=== PATIENT | male | born 1955 | race African-American/Black ===

== ENCOUNTER 2017-02-04 16:06 | Emergency (ER) | payer OTHER ==
[2017-02-04 16:13] VITALS: BP 116/69
--- NOTE | 2017-02-04 18:04 | UC ---
Respiratory Complaint HPI - HPI Summary HPI Summary: ONE WEEK OF COUGH, SINUS CONGESTION. NO FEVER. - History of Current Complaint Chief Complaint: UCRespiratory Stated Complaint: COUGH, AND SINUS CONGESTION Hx Obtained From: Patient Onset/Duration: Gradual Onset, Lasting Weeks, Still Present Timing: Constant Severity Initially: Mild Severity Currently: Moderate Character: Cough: Nonproductive Associated Signs And Symptoms: Positive: Negative, URI, Nasal Congestion, Hoarseness, Sinus Discomfort - Risk Factors Pulmonary Embolism Risk Factors: Negative Cardiac Risk Factors: Negative Pseudomonas Risk Factors: Negative Tuberculosis Risk Factors: Negative - Allergies/Home Medications Allergies/Adverse Reactions: Allergies Allergy/AdvReac Type Severity Reaction Status Date / Time Amoxicillin Allergy Vomiting Verified 02/04/17 16:12 PMH/Surg Hx/FS Hx/Imm Hx Previously Healthy: Yes - Surgical History Surgical History: Yes Surgery Procedure, Year, and Place: C5-C7 laminectomy 2010, back surgery L5 L5 February 2016 - Family History Known Family History: Negative: Cardiac Disease, Hypertension, Diabetes - Social History Occupation: Retired Lives: With Family Alcohol Use: None Substance Use Type: None Substance Use Comment - Amount & Last Used: oxycodone Smoking Status (MU): Current Every Day Smoker Type: Cigarettes Amount Used/How Often: 1/2 PPD Length of Time of Smoking/Using Tobacco: 30 years Have You Smoked in the Last Year: Yes Household Exposure Type: Cigarettes Cessation Counseling: Patient Advised to Stop - Immunization History Most Recent Influenza Vaccination: 2014 Most Recent Tetanus Shot: unknown Most Recent Pneumonia Vaccination: none Review of Systems Constitutional: Negative Skin: Negative Eyes: Negative ENT: Nasal Discharge Respiratory: Cough Cardiovascular: Negative Gastrointestinal: Negative Genitourinary: Negative Motor: Negative Neurovascular: Negative Musculoskeletal: Negative Neurological: Negative Psychological: Negative All Other Systems Reviewed And Are Negative: Yes Physical Exam Triage Information Reviewed: Yes Appearance: Well-Appearing, No Pain Distress, Well-Nourished Vital Signs: Initial Vital Signs Temp 98.8 F 02/04/17 16:11 Pulse 77 02/04/17 16:11 Resp 16 02/04/17 16:11 BP 116/69 02/04/17 16:11 Pulse Ox 96 02/04/17 16:11 Vital Signs Reviewed: Yes Eye Exam: Normal ENT: Positive: Hearing grossly normal, Pharynx normal, Nasal congestion, TMs normal, TM dull Dental Exam: Normal Neck exam: Normal Neck: Positive: Supple, Nontender, No Lymphadenopathy Respiratory Exam: Other - COUGH Respiratory: Positive: Chest non-tender, Lungs clear, Normal breath sounds, No respiratory distress, No accessory muscle use Cardiovascular Exam: Normal Cardiovascular: Positive: RRR, No Murmur, Pulses Normal, Brisk Capillary Refill Abdominal Exam: Normal Musculoskeletal Exam: Normal Musculoskeletal: Positive: Strength Intact, ROM Intact Neurological Exam: Normal Psychological Exam: Normal Psychological: Positive: Normal Response To Family Skin Exam: Normal UC Diagnostic Evaluation - Laboratory O2 Sat by Pulse Oximetry: 96 Respiratory Course/Dx - Differential Dx/Diagnosis Differential Diagnosis/HQI/PQRI: Bronchitis, Influenza, Laryngitis, Sinusitis Provider Diagnoses: SINUSITIS; BRONCHITIS Discharge - Discharge Plan Condition: Stable Disposition: HOME Prescriptions: Azithromycin TAB* [Zithromax TAB (Z-BOBY) 250 mg #6 tabs] 250 mg PO DAILY #6 tab Benzonatate CAP* [Tessalon 100 MG CAP*] 100 mg PO TID PRN #15 cap PRN Reason: Cough Patient Education Materials: Sinusitis (ED), Acute Bronchitis (ED) Referrals: Elvis Cardoso MD [Primary Care Provider] -
== END 2017-02-04 17:50 | disposition home or self-care (01) ==
LOC: UCEAST 16:06
DX: J32.9 Chronic sinusitis, unspecified (principal); F17.210 Nicotine dependence, cigarettes, uncomplicated; J40 Bronchitis, not specified as acute or chronic
CPT/HCPCS: 99212; G0463

== ENCOUNTER 2018-03-12 15:28 | Emergency (ER) | payer OTHER ==
[2018-03-12 16:01] VITALS: BP 129/78
--- NOTE | 2018-03-12 17:58 | UC ---
Respiratory Complaint HPI - History of Current Complaint Chief Complaint: UCRespiratory Stated Complaint: COUGH Time Seen by Provider: 03/12/18 17:54 Pain Intensity: 0 - Allergies/Home Medications Allergies/Adverse Reactions: Allergies Allergy/AdvReac Type Severity Reaction Status Date / Time amoxicillin Allergy Vomiting Verified 03/12/18 16:01 Home Medications: Home Medications Albuterol HFA INHALER* [Ventolin HFA Inhaler*] 2 puff INH QID 03/12/18 [History Confirmed 03/12/18] Ibuprofen TAB* [Motrin TAB* 800 MG] 1 tab PO TID PRN 03/12/18 [History Confirmed 03/12/18] Oxycodone TAB(NF) [Oxycodone HCl 10 MG] 1 tab PO TID 03/12/18 [History Confirmed 03/12/18] PMH/Surg Hx/FS Hx/Imm Hx - Surgical History Surgical History: Yes Surgery Procedure, Year, and Place: C5-C7 laminectomy 2010, back surgery L5 L5 February 2016 - Family History Known Family History: Negative: Cardiac Disease, Hypertension, Diabetes - Social History Alcohol Use: None Substance Use Type: Prescribed Substance Use Comment - Amount & Last Used: oxycodone Smoking Status (MU): Former Smoker Type: Cigarettes Amount Used/How Often: 1/2 PPD Length of Time of Smoking/Using Tobacco: 30 years Have You Smoked in the Last Year: Yes Household Exposure Type: Cigarettes - Immunization History Most Recent Influenza Vaccination: 2014 Most Recent Tetanus Shot: unknown Most Recent Pneumonia Vaccination: none Physical Exam Vital Signs: Initial Vital Signs Temp 98.3 F 03/12/18 15:58 Pulse 82 03/12/18 15:58 Resp 18 03/12/18 15:58 BP 129/78 03/12/18 15:58 Pulse Ox 100 03/12/18 15:58 UC Diagnostic Evaluation - Laboratory O2 Sat by Pulse Oximetry: 100 Discharge - Discharge Plan Referrals: Elvis Cardoso MD [Primary Care Provider] -
== END 2018-03-12 18:41 | disposition home or self-care (01) ==
LOC: UCEAST 15:28
DX: R05 Cough (principal); F17.210 Nicotine dependence, cigarettes, uncomplicated; Z88.1 Allergy status to other antibiotic agents
CPT/HCPCS: 99212; G0463

== ENCOUNTER 2018-04-28 08:43 | Observation (INO) | payer OTHER ==
[2018-04-28] MEDS ORDERED: Magnesium Sulfate 2 GM IV* 2 GM/50 ML BAG ONE (08:48)
[2018-04-28] MEDS ORDERED: Albuterol/Ipratropium NEB.SOL* Albuterol 2.5 MG/Ipratropium 0.5 MG 3 ML INH ONE (08:50)
[2018-04-28] MEDS ORDERED: Magnesium Sulfate 2 GM IV* 2 GM/50 ML BAG IVPB ONE (08:50)
[2018-04-28 09:10] LABS: Hematocrit 43 % (42-52); Hemoglobin 14.6 g/dl (14.0-18.0); Mean Corpuscular HGB Conc 34 g/dl (31-36); Mean Corpuscular Hemoglobin 30 pg (27-31); Mean Corpuscular Volume 89 fL (80-94); Mean Platelet Volume 7.5 um3 (7.4-10.4); Platelet Count 331 10^3/ul (150-450); Red Blood Count 4.83 10^6/ul (4.00-5.40); Red Cell Distribution Width 14 % (10.5-15); White Blood Count 17.6 10^3/ul (3.5-10.8)
--- NOTE | 2018-04-28 09:17 | ED ---
Shortness of Breath - HPI Summary HPI Summary: This patient is a 62 year old M BIBA to [facility] accompanied by his daughter due to respiratory distress. EMS report difficultly breathing since 0600 this morning. EMS reports frequent inhaler use this morning, they are unsure the frequency used or dosage. Upon EMS arrival patient was given Duoneb treatment. Patient was given 10ml of Decadron. EMS reports accessory muscle use with breaths. SaO2 91%. Heart Rate ranged between 90-115 BPM. Daughter reports history of asthma with similar attacks. Daughter states he just got new inhalers. Patient is level 5 caveat. HPI is limited due to respiratory distress. - History of Current Complaint Hx Obtained From: Family/Senior Medical Technologist, EMS Hx From Patient Unobtainable Due To: Extremis Onset/Duration: Lasting Hours Timing: Constant Dyspnea At: Rest Alleviating Factors: Nothing Related History: Similar Episode - Allergy/Home Medications Allergies/Adverse Reactions: Allergies Allergy/AdvReac Type Severity Reaction Status Date / Time amoxicillin Allergy Vomiting Verified 04/28/18 09:07 PMH/Surg Hx/FS Hx/Imm Hx Endocrine/Hematology History: Denies: Hx Diabetes, Hx Thyroid Disease Cardiovascular History: Denies: Hx Congestive Heart Failure, Hx Hypertension, Hx Pacemaker/ICD, Other Cardiovascular Problems/Disorders Respiratory History: Reports: Hx Asthma, Hx Chronic Obstructive Pulmonary Disease (COPD) Denies: Other Respiratory Problems/Disorders GI History: Denies: Hx Ulcer History: Denies: Hx Renal Disease Musculoskeletal History: Reports: Hx Back Problems, Other Musculoskeletal History - Chronic cervicalagia Sensory History: Reports: Hx Cataracts Denies: Hx Contacts or Glasses, Hx Hearing Aid Opthamlomology History: Reports: Hx Cataracts Denies: Hx Contacts or Glasses Neurological History: Denies: Hx Headaches Psychiatric History: Denies: Hx Panic Disorder - Surgical History Surgery Procedure, Year, and Place: C5-C7 laminectomy 2010, back surgery L5 L5 February 2016 Hx Anesthesia Reactions: No Infectious Disease History: No Infectious Disease History: Denies: Hx Clostridium Difficile, Hx Hepatitis, Hx Human Immunodeficiency Virus (HIV), Hx of Known/Suspected MRSA, Hx Shingles, Hx Tuberculosis, Hx Known/ Suspected VRE, Hx Known/Suspected VRSA, History Other Infectious Disease, Traveled Outside the [place] in Last 30 Days - Family History Known Family History: Negative: Cardiac Disease, Hypertension, Diabetes - Social History Alcohol Use: None Substance Use Type: Reports: Prescribed Substance Use Comment - Amount & Last Used: oxycodone Hx Tobacco Use: Yes Smoking Status (MU): Former Smoker Type: Cigarettes Amount Used/How Often: 1/2 PPD Length of Time of Smoking/Using Tobacco: 30 years Have You Smoked in the Last Year: Yes Review of Systems Positive: Shortness Of Breath All Other Systems Reviewed And Are Negative: No - Comments Additional Review of Systems Comments: ROS is limited. Patient is level 5 caveat. Physical Exam - Summary Physical Exam Summary: Constitutional: Well-developed, Well-nourished, Alert. Respiratory Distress. Skin: Warm, Dry HENT: Normocephalic; Atraumatic Eyes: Conjunctiva normal Neck: Musculoskeletal ROM normal neck. (-) JVD, (-) Stridor, (-) Tracheal deviation Cardio: Rhythm regular, rate normal, Heart sounds normal; Intact distal pulses; The pedal pulses are 2+ and symmetric. Radial pulses are 2+ and symmetric. (-) Murmur Pulmonary/Chest wall: Retractions, (+)Respiratory distress, Slight wheezes. Diminished breath sounds. Abd: Soft, (-) epigastric tenderness, (-) Distension, (-) Guarding, (-) Rebound Musculoskeletal: (-) Edema Lymph: (-) Cervical adenopathy Neuro: Alert, Oriented x3 Psych: Mood and affect Normal Triage Information Reviewed: Yes Vital Signs On Initial Exam: Initial Vitals Temp Pulse Resp BP Pulse Ox 97.3 F 102 30 162/114 99 04/28/18 09:00 04/28/18 09:00 04/28/18 09:00 04/28/18 09:00 04/28/18 09:00 Vital Signs Reviewed: Yes Diagnostics - Vital Signs Vital Signs Temp Pulse Resp BP Pulse Ox 04/28/18 09:04 94 15 100 04/28/18 09:00 97.3 F 102 30 162/114 99 - Laboratory Lab Results: Lab Results 04/28/18 Range/Units 08:58 WBC 17.6 H (3.5-10.8) 10^3/ul RBC 4.83 (4.00-5.40) 10^6/ul Hgb 14.6 (14.0-18.0) g/dl Hct 43 (42-52) % MCV 89 (80-94) fL MCH 30 (27-31) pg MCHC 34 (31-36) g/dl RDW 14 (10.5-15) % Plt Count 331 (150-450) 10^3/ul MPV 7.5 (7.4-10.4) um3 Neut % (Auto) Pending Lymph % (Auto) Pending [place] % (Auto) Pending Eos % (Auto) Pending Baso % (Auto) Pending Absolute Neuts (auto) Pending Absolute Lymphs (auto) Pending Absolute Monos (auto) Pending Absolute Eos (auto) Pending Absolute Basos (auto) Pending Absolute Nucleated RBC Pending Nucleated RBC % Pending Result Diagrams: 04/28/18 08:58 04/28/18 08:58 Lab Statement: Any lab studies that have been ordered have been reviewed, and results considered in the medical decision making process. - Radiology CXR Radiology Interpretation Completed By: ED Physician - Preliminary reading: No acute disease., Radiologist - NO EVIDENCE FOR ACUTE FINDING. ED Physician has reviewed this report. - EKG 0856 Cardiac Rate: NL - 98 BPM EKG Rhythm: Sinus Rhythm EKG Interpretation: no STEMI Re-Evaluation - Re-Evaluation First Re-Evaluation Time: 09:50 Change: Improved Comment: Patient feels much better. Lungs are clear. Breath sounds still slightly diminished. Course/Dx - Course Course Of Treatment: 62 year old M BIBA to [facility] accompanied by his daughter due to respiratory distress. EMS report difficultly breathing since 0600 this morning. Upon EMS arrival patient was given Duoneb treatment. Patient was given 10ml of Decadron. Daughter reports history of asthma with similar attacks. Patient presents in respiratory distress with retractions. While in ED patient is givena Duoneb treatment and 2gm of magnesium sulfate. CXR is negative for acute disease. EKG negative for acute concern. Patient's breathing is improved while in the ED and he feels much better. His lungs are clear after medication. Patient is admitted to Dr. Mckay. Patient is agreeable with this plan. - Diagnoses Provider Diagnoses: Asthma exacerbation - Physician Notifications Discussed Care of Patient With: Nelia Mckay - hospitalist Time Discussed With Above Provider: 12:00 Instructed by Provider To: Admit As Inpatient - Critical Care Time Critical Care Time: 30-74 min Discharge - Sign-Out/Discharge Documenting (check all that apply): Patient Departure - admit - Discharge Plan Condition: Stable Disposition: ADMITTED TO [facility] - Billing Disposition and Condition Condition: STABLE Disposition: Admitted to [facility] - Attestation Statements Document Initiated by Scribe: Yes Documenting Scribe: Jaylene Márquez Provider For Whom Scribe is Documenting (Include Credential): Barry Cruz MD Scribe Attestation: IJaylene, scribed for Barry Cruz MD on 04/28/18 at 1903.
[2018-04-28 09:26] LABS: EGFR Non-African American 83.4 (>60)
[2018-04-28] MEDS: NS 0.9% 1000 ML* 2,000 ML IV ONE (09:26)
--- NOTE | 2018-04-28 09:27 | RAD ---
INDICATION: Shortness of breath. COMPARISON: Correlation is made with a prior study from March 29, 2018. Correlation is also made with a prior study from December 31, 2015. TECHNIQUE: A portable view of the chest was obtained. FINDINGS: Cardiac and mediastinal contours appear to be within normal limits. There are curvilinear areas of increased density at the left lung base which are unchanged from prior studies suggestive of scarring. Small calcific densities project over the right upper lobe which are unchanged. The lungs are otherwise grossly clear. No pleural effusion is seen. IMPRESSION: NO EVIDENCE FOR ACUTE FINDING.
[2018-04-28 09:38] LABS: ABS Basophils 0.1 10^3/ul (0-0.2); ABS Eosinophils 2.1 10^3/ul (0-0.6); ABS Lymphocytes 3.1 10^3/ul (1.0-4.8); ABS Monocytes 0.7 10^3/ul (0-0.8); ABS Neutrophils 11.6 10^3/ul (1.5-7.7); ABS Nucleated RBC 0 10^3/ul; Eosinophil % 11.8 % (0-6); Lymphocyte % 17.6 % (25-47); Nucleated Red Blood Cells % 0
[2018-04-28] MEDS ORDERED: Albuterol/Ipratropium NEB.SOL* Albuterol 2.5 MG/Ipratropium 0.5 MG 3 ML ONE (09:57)
[2018-04-28] MEDS ORDERED: Albuterol 2.5 MG/3 ML NEB.SOL* (0.083%) INH ONE (09:59)
[2018-04-28] MEDS ORDERED: Ibuprofen TAB* 800 MG PO PRN (10:49)
[2018-04-28] MEDS: Albuterol/Ipratropium NEB.SOL* Albuterol 2.5 MG/Ipratropium 0.5 MG 3 ML INH SCH ×4 (11:38→23:27)
[2018-04-28] MEDS: oxyCODONE TAB* 5 MG TAB PO SCH ×2 (12:03→21:13)
[2018-04-28] MEDS: methylPREDNISolone SOD 40 MG* 1 ML VIAL IV SCH ×2 (12:44→21:16)
[2018-04-28] MEDS: Heparin VIAL(*) 5000 UNITS/ML VIAL (FIVE THOUSAND) SUBCUT SCH ×2 (12:44→21:16)
--- NOTE | 2018-04-28 13:36 | HP ---
CC: Dr. Cardoso * HISTORY AND PHYSICAL: DATE OF ADMISSION: 04/28/18 PROVIDER: Keagan Montes De Oca NP ATTENDING PHYSICIAN: Dr. Cordova * (report dictated by Keagan Montes De Oca NP). PRIMARY CARE PROVIDER: Dr. Cardoso. CHIEF COMPLAINT: Acute shortness of breath. HISTORY OF PRESENT ILLNESS: Mr. Diallo is a 62-year-old male with a past medical history of long-term tobacco abuse, quitting approximately 40 days ago; history of asthma and COPD, who presents to the emergency department today with acute respiratory distress, reporting that yesterday, he was exposed to asphalt being laid down on the road, and states that he is very sensitive to smells and started to feel short of breath yesterday afternoon. He reports he took his albuterol inhaler more than normal and nebulized himself twice last evening and reports that he had some slight improvement, but overnight, he reports that he was very short of breath and awake most of the night, unable to sleep. He reported that when he got up to go to the bathroom this morning around 6 a.m., he could barely breathe and EMS was called. EMS reported that he was found to be very short of breath using accessory muscle use with O2 sat of 91%, heart rate of 90 to 115. The patient was given Decadron and was started on CPAP in the ambulance. On evaluation in the emergency department, the patient currently reports he feels much better. He still continues to have some expiratory wheezes and feels mildly short of breath; however, he is off the CPAP and feels that he has improved overall. He denies oxygen use at home. He reports he only uses p.r.n. albuterol MDI. He denies any recent illnesses. Denies fever, chills, cough, sputum production. No rhinorrhea. He does not follow with the legal file clerk. He reports end of February of this year, he was treated for COPD exacerbation with bronchitis with antibiotics and prednisone and has been doing fairly well since that time. PAST MEDICAL HISTORY: 1. Long-term tobacco abuse, recently quitting 40 days ago. 2. COPD. 3. Asthma. 4. History of thyroid nodules, currently being watched. 5. Laminectomy in 2010 and lumbar diskectomy, L4-L5, 2016. CURRENT MEDICATIONS: 1. Oxycodone 10 mg p.o. t.i.d. 2. Ibuprofen 800 mg p.o. t.i.d. p.r.n. 3. Albuterol HFA inhaler 2 puffs INH four times a day. ALLERGIES: AMOXICILLIN. FAMILY HISTORY: Denies family history of diabetes, cancer, or heart disease. SOCIAL HISTORY: The patient currently lives with his girlfriend, Katerin Nixon, who he lists as his healthcare proxy. He reports that she is currently hospitalized and has cancer. He lists her daughter, Alba, as a second healthcare proxy. The patient reports a 40-year smoking history, quitting approximately 40 days ago. Denies alcohol or recreational drug use. He is retired. Overall, the patient reports that he is active and usually walks 2 miles a day. He lists himself as a full code. REVIEW OF SYSTEMS: A 14-point review of systems was performed. All the pertinent positives and negatives are mentioned in the history of present illness. Otherwise are negative. PHYSICAL EXAMINATION GENERAL APPEARANCE: Well-developed 62-year-old male, alert and oriented x3, in no acute distress, good historian. VITAL SIGNS: Temperature 97.3, heart rate 88, respirations 16, O2 sat 94% on 2 L nasal cannula, and blood pressure 124/86. HEENT: Head is normocephalic, atraumatic. Pupils are equal and reactive to light. Oropharynx is clear. Moist mucous membranes. NECK: Supple. LUNGS: Diminished bilaterally with some noted expiratory wheezes in his upper airways. No accessory muscle use. CARDIAC: S1, S2. Regular rate and rhythm. No murmur, rub, or gallops appreciated. ABDOMEN: Soft, nontender, nondistended. Normal bowel sounds throughout. EXTREMITIES: No clubbing, cyanosis, or edema. Strength is 5/5 throughout. Moves all extremities equally. NEURO: Alert and oriented x3. Cranial nerves II through XII are grossly intact. No focal deficits noted. DIAGNOSTIC STUDIES/LAB DATA: WBC 17.6, RBC 4.83, Hgb 14.6, Hct 43, MCV 89, MCH 30, MCHC 34, RDW 14, platelet count 333. Sodium 140, potassium 3.9, chloride 102, carbon dioxide 31, anion gap 7, BUN 9, creatinine 0.92, glucose 136, lactic acid 1.8, calcium 9.2. Total bilirubin 0.20, AST 16, ALT 15, alkaline phosphatase 103. Total protein 7.8, albumin 4.6. Chest x-ray, impression: "No evidence for acute findings." EKG: Sinus rhythm with a rate of 98 and consistent with a noted right bundle branch block. In comparison to prior EKG, there are no acute changes. ASSESSMENT AND PLAN: Mr. Diallo is a 62-year-old male with a past medical history of long-term tobacco abuse, chronic obstructive pulmonary disease, asthma, who presents to the emergency department today after he developed increased shortness of breath yesterday after being exposed to asphalt being laid, presenting this morning with acute respiratory distress. 1. Acute respiratory distress secondary to chronic obstructive pulmonary disease/asthma. The patient reports he is definitely sensitive to environmental exposure and this has happened before in the past. The patient has greatly improved. However, he will require hospitalization on observation status for monitoring as he continues to require oxygen in which he is currently on 2 L nasal cannula and will require DuoNebs q.4 hours while awake and we will start him on Solu-Medrol 40 mg IV q.8 hours, as well I have started him on DuoNeb b.i.d., which he should be discharged home with and most likely will need a prednisone taper course. As well I spoke to the patient about referral to Dr. Cardenas, legal file clerk. The patient does present with a leukocytosis of 17; however, I do not think this is infectious and this is secondary to being given Decadron. Plan to hold off on antibiotics at this time as the patient had no preceding fevers, cough, sputum production. We will continue to titrate off oxygen. The patient does have a nebulizing machine at home, but we will need to clarify if he has DuoNeb solution or just albuterol at home. He may benefit more from having DuoNeb solution. 2. Chronic pain secondary to back surgeries. We will continue the patient's home regimen of oxycodone 10 mg p.o. t.i.d. and ibuprofen p.r.n. 3. DVT prophylaxis. Heparin subcu. 4. FEN. The patient received 1 L of normal saline in the emergency department. We will hold off on giving more IV fluids at this time. Regular diet. Electrolytes are within normal limits. 5. Hospital status. Observation. Hopefully, the patient will be able to be discharged to home tomorrow. TIME SPENT: Approximately 60 minutes was spent on this admission. KEAGAN MONTES DE OCA NP [id number]/[facility] #: [id number] LELE
[2018-04-28] MEDS: Mometasone/Formoter 200/5 MDI INH SCH (19:21)
[2018-04-29] MEDS: Albuterol/Ipratropium NEB.SOL* Albuterol 2.5 MG/Ipratropium 0.5 MG 3 ML INH SCH ×4 (02:57→15:14)
[2018-04-29] MEDS: Heparin VIAL(*) 5000 UNITS/ML VIAL (FIVE THOUSAND) SUBCUT SCH ×2 (05:59→13:20)
[2018-04-29] MEDS: methylPREDNISolone SOD 40 MG* 1 ML VIAL IV SCH ×2 (05:59→13:21)
[2018-04-29] MEDS: Mometasone/Formoter 200/5 MDI INH SCH (07:15)
[2018-04-29] MEDS: oxyCODONE TAB* 5 MG TAB PO SCH ×2 (07:52→13:18)
[2018-04-29 08:09] LABS: ABS Basophils 0 10^3/ul (0-0.2); ABS Eosinophils 0 10^3/ul (0-0.6); ABS Lymphocytes 1.6 10^3/ul (1.0-4.8); ABS Monocytes 0.2 10^3/ul (0-0.8); ABS Neutrophils 13.3 10^3/ul (1.5-7.7); ABS Nucleated RBC 0 10^3/ul; Eosinophil % 0 % (0-6); Hematocrit 37 % (42-52); Hemoglobin 12.5 g/dl (14.0-18.0); Lymphocyte % 10.3 % (25-47); Mean Corpuscular HGB Conc 34 g/dl (31-36); Mean Corpuscular Hemoglobin 30 pg (27-31); Mean Corpuscular Volume 89 fL (80-94); Mean Platelet Volume 8.3 um3 (7.4-10.4); Nucleated Red Blood Cells % 0.1; Platelet Count 266 10^3/ul (150-450); Red Blood Count 4.19 10^6/ul (4.00-5.40); Red Cell Distribution Width 14 % (10.5-15)
[2018-04-29 08:37] LABS: EGFR Non-African American 102.4 (>60)
[2018-04-29 15:38] VITALS: BP 110/60
--- NOTE | 2018-04-30 10:45 | DS ---
DISCHARGE SUMMARY: DATE OF ADMISSION: 04/28/18 DATE OF DISCHARGE: 04/29/18 FINAL DISCHARGE DIAGNOSIS: Asthma exacerbation. HOSPITAL COURSE: The patient was admitted on 04/28/18 for sudden onset shortness of breath, which pr ogressively got worse in 24 hours. He said he was exposed to asphalt being laid down on the road, wh ich was associated with some toxic fume. He felt shortness of breath. He took his inhalers at home without any significant relief. He became more labored and more dyspneic and he came into the emerge ncy room. He was noted to use his accessory muscle with saturation of 91% and a pulse of 115. He wa s given Decadron and was started on CPAP en route via the ambulance. He started to feel better in the emergency room, nonetheless giving his underlying history of COPD/asthma and prior history of long t obacco use, he was admitted for COPD and asthma exacerbation. In the emergency room, he had a white count of 17,000. Chest x-ray was unremarkable. He was admitted and started on IV Solu- Medrol with DuoNeb without the antibiotic. He was seen and evaluated this morning. He does report significant im provement. He was eager to be released. He was convinced to remain till the afternoon to be reasses sed. He was reassessed in the afternoon. He continued to feel better. Diminished wheezing, good ai rflow. Hence, I deemed the patient stable for discharge. PHYSICAL EXAM: His vital sign shows temperature 97.8, pulse 81, respiratory rate 18, satting 97%, pr essure 110/60. Generally, he is awake, alert, pleasant, in no distress. Head and Neck: Normocephal ic, atraumatic. Supple. No JVD. Lungs: Good air flow. Fine, minimal expiratory wheezing. Abdomen : Positive bowel sounds. Soft, nontender, nondistended. Cardiovascular: S1, S2. Regular rate and rhythm. No murmur. ADDRESSING MACHINE OPERATOR: There is no motor or focal sensory deficit. Extremities: No pedal edema. Good peripheral pulse. DIAGNOSTIC STUDIES/LAB DATA: Chemistry was fairly unremarkable. Slightly elevated blood sugar, but he was on steroids. CBC shows leukocytosis, which decreased down to 15. Chest x-ray, no acute disease. DISCHARGE MEDICATIONS: 1. Dulera 200/5 one puff twice a day. 2. Prednisone 20 mg 2-tab for 3 days and 1 tab for 3 days and stop. DISCHARGE INSTRUCTIONS: The patient to follow up with his primary doctor, Dr. Garcia, on 05/06/18. My recommendation is to repeat his chemistry to make sure his sugar has normalized once he is off th e steroid and his CBC to make his leukocytosis has normalized. The patient to take all medications as prescribed. He is to report back to the emergency room or see k immediate medical attention if he was to develop fever or shortness of breath again. He is to continue his home medication as per home: 1. Oxycodone 10 mg 1 tab 3 times a day, no prescription provided. 2. Ibuprofen as needed for pain, no prescription provided. 3. Albuterol p.r.n. via puff inhaler. [id number]/[facility] #: [id number]
== END 2018-04-29 17:00 | disposition home or self-care (01) ==
LOC: ED 08:43 → MED 10:44
PROVIDERS: ADMIT Internal Medicine; ATTEND Internal Medicine
DX: J45.901 Unspecified asthma with (acute) exacerbation (principal); Z79.899 Other long term (current) drug therapy; Z88.0 Allergy status to penicillin; Z87.891 Personal history of nicotine dependence; R94.31 Abnormal electrocardiogram [ECG] [EKG]
CPT/HCPCS: 36415; 71045; 80048; 80053; 83605; 85025; 87040; 93005; 94640; 96365; 96372; 96375; 96376; 99284; A9270-GY; G0378; J1644; J2920; J3475

== ENCOUNTER 2018-08-16 12:18 | Emergency (ER) | payer MEDICARE, OTHER ==
--- OUTSIDE RECORDS SUMMARY | 2018-08-16 12:23 | XMS REPORT | Continuity of Care Document ---
:1955 External Reference #:[id number] Author Name Eitan Leone DO, MPH Address [address] [place] [address], [address] [place] [address] Care Team Providers Name Role Phone Elvis Cardoso M.D. Care Team Information Improvement Advisor Unavailable Elvis Cardoso M.D. Primary Care Physician Unavailable Payers Type Date Identification Numbers Payment Provider Subscriber Onset: Policy Number: TST Bear Diallo 2015 2014 Compensation Group Number: [id number] [address] PayID: [id number] [place] [address] Advance Directives Description No Information Available Problems Description No Information Family History Date Family Member(s) Problem(s) Comments Father due to Natural Causes () Mother due to Natural Causes () Children 3 Siblings 7 Grandchildren 8 Social History Type Date Description Comments Sex Unknown Marital Status Significant Other Occupation [employer] Occupation Unemployed Work Status Not Currently Working Cigarette Use Current Cigarette Smoker 1/2 Pack Daily ETOH Use Denies alcohol use Tobacco Use Start: Unknown Patient is a current smoker, smokes every day Smoking Status Reviewed: 07/26/18 Patient is a current smoker, smokes every day Allergies, Adverse Reactions, Alerts Date Description Reaction Status Severity Comments 01/15/2017 Amoxicillin / Clavulanate Active Medications Medication Date Status Form Strength Qnty SIG Indications Ordering Provider Oxycodone HCL 01/15/ Active Tablets 10mg 90tabs si by mouth G89.21 Simran Leone every 8 hours DO Eitan as directed MPH chronic pain patient. fill under worker's compensation only M54.5 Ibuprofen Active Tablets 600mg si by mouth Unknown three times a day Advair Diskus Active Aerosol 100-50mcg/D 1 puffs daily Unknown ose Albuterol Active Aerosol 90mcg/Dose 1 puff 4 times Unknown Inhalation a day Oxycodone HCL - Hx Tablets 10mg si by mouth Unknown 01/15/2017 every 4 to 6 hours as directed chronic pain patient Immunizations Description No Information Available Vital Signs Date Vital Result Comment 07/26/2018 10:02am BP Systolic 122 mmHg BP Diastolic 78 mmHg Heart Rate 80 /min Respiratory Rate 20 /min Height 63 inches 5'3" Weight 154.00 lb Pain Level 6 Pain at this time. Pain Level With Medicine 5 on average with meds Pain Level Without Medicine 05/26 without meds BMI (Body Mass Index) 27.3 kg/m2 06/23/2018 2:45pm BP Systolic 122 mmHg BP Diastolic 74 mmHg Heart Rate 76 /min Respiratory Rate 20 /min Height 63 inches 5'3" Weight 153.00 lb Pain Level 6 Pain at this time. Pain Level With Medicine 5 on average with meds Pain Level Without Medicine 05/26 without meds BMI (Body Mass Index) 27.1 kg/m2 05/07/2018 2:23pm BP Systolic 138 mmHg BP Diastolic 84 mmHg Heart Rate 86 /min Respiratory Rate 20 /min Height 63 inches 5'3" Weight 132.00 lb Pain Level 6 Pain at this time. Pain Level With Medicine 5 on average with meds Pain Level Without Medicine 05/26 without meds BMI (Body Mass Index) 23.4 kg/m2 04/22/2018 3:08pm BP Systolic 128 mmHg BP Diastolic 84 mmHg Heart Rate 76 /min Respiratory Rate 20 /min Height 63 inches 5'3" Weight 132.00 lb Pain Level 6 Pain at this time. Pain Level With Medicine 6 on average with meds Pain Level Without Medicine 05/26 without meds BMI (Body Mass Index) 23.4 kg/m2 03/26/2018 10:00am BP Systolic 144 mmHg BP Diastolic 92 mmHg Heart Rate 88 /min Respiratory Rate 20 /min Height 63 inches 5'3" Weight 144.00 lb Pain Level 8 Pain at this time. Pain Level With Medicine 7 on average with meds Pain Level Without Medicine 05/26 without meds BMI (Body Mass Index) 25.5 kg/m2 02/23/2018 9:28am BP Systolic 128 mmHg BP Diastolic 84 mmHg Heart Rate 80 /min Respiratory Rate 20 /min Height 63 inches 5'3" Weight 135.00 lb Pain Level 8 Pain at this time. Pain Level With Medicine 7 on average with meds Pain Level Without Medicine 05/26 without meds BMI (Body Mass Index) 23.9 kg/m2 01/20/2018 9:44am BP Systolic 130 mmHg BP Diastolic 80 mmHg Heart Rate 84 /min Respiratory Rate 20 /min Height 63 inches 5'3" Weight 151.00 lb Pain Level 7 Pain at this time. Pain Level With Medicine 6 on average with meds Pain Level Without Medicine 10 05/26 without meds BMI (Body Mass Index) 26.7 kg/m2 12/21/2017 10:18am BP Systolic 126 mmHg BP Diastolic 74 mmHg Heart Rate 72 /min Respiratory Rate 20 /min Height 63 inches 5'3" Weight 149.00 lb Pain Level 6 Pain at this time. Pain Level With Medicine 5 on average with meds Pain Level Without Medicine 05/26 without meds BMI (Body Mass Index) 26.4 kg/m2 11/20/2017 11:09am BP Systolic 132 mmHg BP Diastolic 88 mmHg Heart Rate 80 /min Respiratory Rate 20 /min Height 63 inches 5'3" Weight 153.00 lb Pain Level 7 Pain at this time. Pain Level With Medicine 6 on average with meds Pain Level Without Medicine 05/26 without meds BMI (Body Mass Index) 27.1 kg/m2 10/21/2017 11:10am BP Systolic 128 mmHg BP Diastolic 84 mmHg Heart Rate 76 /min Respiratory Rate 20 /min Height 63 inches 5'3" Weight 156.00 lb Pain Level 8 Pain at this time. Pain Level With Medicine 7 on average with meds Pain Level Without Medicine 10 05/26 without meds BMI (Body Mass Index) 27.6 kg/m2 09/17/2017 11:32am BP Systolic 132 mmHg BP Diastolic 86 mmHg Heart Rate 84 /min Respiratory Rate 20 /min Height 63 inches 5'3" Weight 154.00 lb Pain Level 8 Pain at this time. Pain Level With Medicine 7 on average with meds Pain Level Without Medicine 10 05/26 without meds BMI (Body Mass Index) 27.3 kg/m2 08/19/2017 11:22am BP Systolic 128 mmHg BP Diastolic 80 mmHg Heart Rate 84 /min Respiratory Rate 20 /min Height 63 inches 5'3" Weight 153.00 lb Pain Level 7 Pain at this time. Pain Level With Medicine 4 on average with meds Pain Level Without Medicine 10 05/26 without meds BMI (Body Mass Index) 27.1 kg/m2 07/17/2017 11:31am BP Systolic 128 mmHg BP Diastolic 76 mmHg Heart Rate 74 /min Respiratory Rate 20 /min Height 63 inches 5'3" Weight 150.00 lb Pain Level 7 Pain at this time. Pain Level With Medicine 6 on average with meds Pain Level Without Medicine 10 05/26 without meds BMI (Body Mass Index) 26.6 kg/m2 06/17/2017 3:35pm BP Systolic 128 mmHg BP Diastolic 76 mmHg Heart Rate 78 /min Respiratory Rate 20 /min Height 63 inches 5'3" Weight 152.00 lb Pain Level 8 Pain at this time. Pain Level With Medicine 7 on average with meds Pain Level Without Medicine 10 05/26 without meds BMI (Body Mass Index) 26.9 kg/m2 05/19/2017 10:59am BP Systolic 132 mmHg BP Diastolic 76 mmHg Heart Rate 76 /min Respiratory Rate 16 /min Height 63 inches 5'3" Weight 150.00 lb Pain Level 8 8/10, Pain at this time. Pain Level With Medicine 3 10/24, on average with meds Pain Level Without Medicine 10 05/26 without meds BMI (Body Mass Index) 26.6 kg/m2 04/15/2017 11:38am BP Systolic 130 mmHg BP Diastolic 80 mmHg Heart Rate 78 /min Respiratory Rate 20 /min Height 63 inches 5'3" Weight 150.00 lb Pain Level 7 Pain Level With Medicine 5 Pain Level Without Medicine 10 BMI (Body Mass Index) 26.6 kg/m2 03/20/2017 10:34am BP Systolic 122 mmHg BP Diastolic 76 mmHg Heart Rate 80 /min Respiratory Rate 18 /min Height 63 inches 5'3" Weight 141.00 lb Pain Level 7 Pain at this time. Pain Level With Medicine 6 on average with meds Pain Level Without Medicine 10 05/26 without meds BMI (Body Mass Index) 25.0 kg/m2 02/18/2017 10:09am BP Systolic 136 mmHg BP Diastolic 90 mmHg Heart Rate 76 /min Respiratory Rate 16 /min Height 63 inches 5'3" Weight 150.00 lb Pain Level 6 6/10, Pain at this time. Pain Level With Medicine 6 6/10, on average with meds, on average with meds Pain Level Without Medicine 10 BMI (Body Mass Index) 26.6 kg/m2 01/28/2017 3:14pm BP Systolic 136 mmHg BP Diastolic 84 mmHg Heart Rate 88 /min Respiratory Rate 20 /min Height 63 inches 5'3" Weight 150.00 lb Pain Level 8 Pain at this time. Pain Level With Medicine 7 on average with meds Pain Level Without Medicine 10 05/26 without meds BMI (Body Mass Index) 26.6 kg/m2 01/15/2017 2:33pm BP Systolic 130 mmHg BP Diastolic 84 mmHg Heart Rate 82 /min Respiratory Rate 20 /min Height 63 inches 5'3" Weight 150.00 lb Pain Level 8 Pain at this time. Pain Level Without Medicine 10 05/26 without meds BMI (Body Mass Index) 26.6 kg/m2 Results Description No Information Available Procedures Date Code Description Status 05/07/2018 00753 Omt 1-2 Body Regions Completed 04/22/2018 12434 Omt 1-2 Body Regions Completed 03/26/2018 56467 Omt 1-2 Body Regions Completed 02/23/2018 34128 Omt 1-2 Body Regions Completed 01/20/2018 05645 Omt 1-2 Body Regions Completed 12/21/2017 13896 Omt 1-2 Body Regions Completed 05/19/2017 75429 Omt 1-2 Body Regions Completed 04/15/2017 41116 Omt 1-2 Body Regions Completed Encounters Type Date Location Provider Dx Diagnosis Office Visit 06/23/2018 Main Office as Of Eitan Leone DO G89.21 Chronic pain due 2:45p 09/17/13 MPH to trauma M54.5 Low back pain Z79.891 senior care (current) use of opiate analgesic 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 Office Visit 05/07/2018 2:30p Main Office as Eitan Leone G89.21 Chronic pain due Of 09/17/13 , MPH to trauma M54.5 Low back pain M99.03 Segmental and somatic dysfunction of lumbar region Z79.891 senior care (current) use of opiate analgesic Z79.891 senior care (current) use of opiate analgesic Office Visit 04/22/2018 3:00p Main Office as Eitan Leone G89.21 Chronic pain due Of 09/17/13 DO, MPH to trauma M54.5 Low back pain M99.03 Segmental and somatic dysfunction of lumbar region Z79.891 senior care (current) use of opiate analgesic Z79.891 senior care (current) use of opiate analgesic Office Visit 03/26/2018 10:00a Main Office as Eitan Leone G89.21 Chronic pain due Of 09/17/13 DO, MPH to trauma M54.16 Radiculopathy, lumbar region M54.5 Low back pain M99.03 Segmental and somatic dysfunction of lumbar region 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 Office Visit 02/23/2018 9:30a Main Office as Eitan Leone G89.21 Chronic pain due Of 09/17/13 DO, MPH to trauma M54.5 Low back pain M54.16 Radiculopathy, lumbar region M99.03 Segmental and somatic dysfunction of lumbar region 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 Z79.891 senior care (current) use of opiate analgesic Office Visit 01/20/2018 9:30a Main Office as Eitan Leone G89.21 Chronic pain due Of 09/17/13 DO, MPH to trauma M54.5 Low back pain M99.03 Segmental and somatic dysfunction of lumbar region M54.16 Radiculopathy, lumbar region 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 Z79.891 senior care (current) use of opiate analgesic Office Visit 12/21/2017 10:15a Main Office as Eitan Leone G89.21 Chronic pain due Of 09/17/13 DO, MPH to trauma M54.5 Low back pain M54.16 Radiculopathy, lumbar region M99.03 Segmental and somatic dysfunction of lumbar region 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 Z79.891 senior care (current) use of opiate analgesic Office Visit 11/20/2017 10:45a Main Office as Eitan Leone G89.21 Chronic pain due Of 09/17/13 DO, MPH to trauma M54.5 Low back pain M54.16 Radiculopathy, lumbar region 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 Z79.891 senior care (current) use of opiate analgesic Office Visit 10/21/2017 10:45a Main Office as Eitan Leone G89.21 Chronic pain due Of 09/17/13 DO, MPH to trauma M54.5 Low back pain Z79.891 senior care (current) use of opiate analgesic Z79.891 senior care (current) use of opiate analgesic Office Visit 09/17/2017 11:30a Main Office as Eitan Leone G89.21 Chronic pain due Of 09/17/13 DO, MPH to trauma M54.5 Low back pain 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 M54.16 Radiculopathy, lumbar region 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 Office Visit 08/19/2017 11:15a Main Office as Eitan Leone G89.21 Chronic pain due Of 09/17/13 DO, MPH to trauma M54.5 Low back pain Z79.891 senior care (current) use of opiate analgesic 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 Office Visit 07/17/2017 11:30a Main Office as Eitan Leone G89.21 Chronic pain due Of 09/17/13 DO, MPH to trauma M54.16 Radiculopathy, lumbar region M54.5 Low back pain Z79.891 senior care (current) use of opiate analgesic 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 Office Visit 06/17/2017 3:15p Main Office as Eitan Leone G89.21 Chronic pain due Of 09/17/13 DO, MPH to trauma M54.16 Radiculopathy, lumbar region M96.1 Postlaminectomy syndrome, not elsewhere classified M54.5 Low back pain 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 Z79.891 senior care (current) use of opiate analgesic Office Visit 05/19/2017 11:00a Main Office as Mary Medina 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 M54.16 Radiculopathy, lumbar region M96.1 Postlaminectomy syndrome, not elsewhere classified M54.5 Low back pain M99.03 Segmental and somatic dysfunction of lumbar region Z71.89 Other specified counseling 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 Z71.6 Tobacco abuse counseling 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 Office Visit 04/15/2017 11:45a Main Office as Mary Medina 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 M96.1 Postlaminectomy syndrome, not elsewhere classified M54.16 Radiculopathy, lumbar region M54.5 Low back pain M99.03 Segmental and somatic dysfunction of lumbar region Z71.89 Other specified counseling 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 Z79.891 senior care (current) use of opiate analgesic Office Visit 03/20/2017 10:15a Main Office as Eitan Leone G89.21 Chronic pain due Of 09/17/13 DO, MPH to trauma M54.5 Low back pain M96.1 Postlaminectomy syndrome, not elsewhere classified M54.16 Radiculopathy, lumbar region Z79.891 senior care (current) use of opiate analgesic 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 Office Visit 02/18/2017 9:45a Main Office as Mary Medina 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 M54.5 Low back pain M96.1 Postlaminectomy syndrome, not elsewhere classified M54.16 Radiculopathy, lumbar region Z79.891 senior care (current) use of opiate analgesic Z79.891 senior care (current) use of opiate analgesic Office Visit 01/28/2017 3:00p Main Office as Eitan Leone G89.21 Chronic pain due Of 09/17/13 DO, MPH to trauma M96.1 Postlaminectomy syndrome, not elsewhere classified M54.5 Low back pain M54.16 Radiculopathy, lumbar region 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 Z79.891 senior care (current) use of opiate analgesic Office Visit 01/15/2017 2:00p Main Office as Eitan Leone, G89.21 Chronic pain due Of 09/17/13 , MPH to trauma M96.1 Postlaminectomy syndrome, not elsewhere classified M54.5 Low back pain M54.16 Radiculopathy, lumbar region Z71.3 Dietary counseling and surveillance Z71.89 Other specified counseling 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 Symptoms and complaints discussed and reviewed today. No significant changes in physical findings. Continue current medical pain management.M54.5 Low back painComments:Chronic. Symptoms and complaints discussed and reviewed today.No changes in physical findings. Patient is stable and comfortable when current medical therapy is rendered.Z79.891 senior care ( current) use of opiate analgesicNew Labs:Urine Drug Screen, Ordered: Comments:~B_Urine drug screen sample taken. Rapid Point of Care Cup was reviewed in office with patient. Will send out UDT Rapid to [facility] lab for confirmation testing. Urine Drug Testing (UDT) was done today to monitor opiate use and to monitor possible use of illicit substances. I will discuss the results at the next appointment from the [facility] lab.~b_The following tests were ordered:6 AM, AMPH, SINDHU, JESSICA, BUP, CARIS, COCM, COT, ETG, FENT, MCSHSG, OPI, OXY, PCP, TAPEN, XTSY, ZOLP. ~I_A urine drug test (UDT) using a rapid screen cup was ordered for this patient and collected on site today. Creatinine has been ordered as well for specimen validity, not for kidney function. ~B_Urine Drug Testing is a mandatory component of chronic opioid management, as part of the baseline assessment and ongoing re-assessment of opioid therapy. Per [place] [employer], [place] Non- Acute Pain Medical Treatment Guidelines, section F.3.d.i. ~b_This test is to be used in conjunction with other clinical information when decisions are to be made to continue, adjust or discontinue treatment. This information includes clinical observation, results of addiction screening, pill counts, and prescription drug monitoring reports. Preliminary UDT screen results are not final and should not be used to determine patient care or plan of treatment. This sample will be sent out for a more comprehensive quantitative confirmation LCMS study. It is part of the treatment process of prescribing controlled substances and is considered standard of care at this clinic.~i_ ~b_AllComments :All above symptoms and complaints discussed as well as diagnoses reviewed.Continue trial of opioid pain management - note changes below; injection therapy, osteopathic manipulation (OMT), PT / modalities, and consults as needed to manage chronic pain.Side effects discussed; anticipatory guidance given. Patient clearly understands and agrees with all medical treatments and suggestions. All medicines prescribed are adequate and appropriate for this patient's complaint of pain, medical history, physical, and personal goals.Goals of Treatment are to provide adequate and appropriate multidisciplinary medical pain management to increase/ maintain patient's quality of life and functionality while maintaining satisfactory side effect profile and minimizing long-term end-organ damage. Activity as toleratedContinue with PCP
[2018-08-16 12:48] VITALS: BP 124/72
--- NOTE | 2018-08-16 13:05 | UC ---
Throat Pain/Nasal Kay[place] HPI - HPI Summary HPI Summary: Started w/ 3 days of sore throat and cough. Sick contact is nephew. - History of Current Complaint Chief Complaint: UCGeneralIllness Stated Complaint: SORE THROAT Time Seen by Provider: 08/16/18 12:53 Hx Obtained From: Patient Pain Intensity: 8 Pain Scale Used: 0-10 Numeric - Allergies/Home Medications Allergies/Adverse Reactions: Allergies Allergy/AdvReac Type Severity Reaction Status Date / Time amoxicillin Allergy Vomiting Verified 08/16/18 12:48 Home Medications: Home Medications Acetaminophen [Pain Reliever] 1,000 mg PO ONCE 08/16/18 [History Confirmed 08/16] PMH/Surg Hx/FS Hx/Imm Hx Previously Healthy: Yes Respiratory History: COPD - Surgical History Surgical History: Yes Surgery Procedure, Year, and Place: C5-C7 laminectomy 2010, back surgery L5 L5 February 2016 - Family History Known Family History: Negative: Cardiac Disease, Hypertension, Diabetes - Social History Alcohol Use: None Substance Use Type: Prescribed Substance Use Comment - Amount & Last Used: oxycodone Smoking Status (MU): Former Smoker Type: Cigarettes Amount Used/How Often: 1/2 PPD Length of Time of Smoking/Using Tobacco: 30 years Have You Smoked in the Last Year: Yes Household Exposure Type: Cigarettes - Immunization History Most Recent Influenza Vaccination: 2014 Most Recent Tetanus Shot: unknown Most Recent Pneumonia Vaccination: none Review of Systems All Other Systems Reviewed And Are Negative: Yes Constitutional: Positive: Fatigue. Negative: Fever Skin: Positive: Negative ENT: Positive: Sore Throat, Sinus Congestion. Negative: Ear Ache, Sinus Pain/ Tenderness Respiratory: Positive: Cough - dry Cardiovascular: Positive: Negative Neurological: Positive: Negative Physical Exam Triage Information Reviewed: Yes Appearance: Well-Appearing Vital Signs: Initial Vital Signs Temp 97.9 F 08/16/18 12:42 Pulse 92 08/16/18 12:42 Resp 18 08/16/18 12:42 BP 124/72 08/16/18 12:42 Pulse Ox 94 08/16/18 12:42 Vital Signs Reviewed: Yes ENT: Positive: Pharynx normal, TMs normal. Negative: Hoarse voice Neck: Positive: Supple, Nontender Respiratory: Positive: Lungs clear, No respiratory distress, No accessory muscle use. Negative: Crackles, Rhonchi, Stridor, Wheezing Cardiovascular Exam: Normal Musculoskeletal: Positive: No Edema - LE Neurological: Positive: Alert Throat Pain/Nasal Course/Dx - Course Assessment/Plan: Cough and sore throat in a pt. w/ copd. he used his albuterol inhaler this morning which helped somewhat. Not thought to be pneumonia but have asked him to f/u w/ pcp if not improving. Rapid strep neg; viral pharyngitis dx'd which is self limiting. vitals good. - Differential Dx/Diagnosis Provider Diagnosis: Bronchitis, Pharyngitis Discharge - Sign-Out/Discharge Documenting (check all that apply): Patient Departure All imaging exams completed and their final reports reviewed: No Studies - Discharge Plan Condition: Good Disposition: HOME Prescriptions: Codeine Phosphate/Guaifenesin [Codeine-Guaifen 10-100 mg/5 ml] 10 ml PO Q6HR # 200 ml MDD 4 teaspoons /day Patient Education Materials: Pharyngitis (ED), Acute Bronchitis (ED) Referrals: Elvis Cardoso MD [Primary Care Provider] - Additional Instructions: If you are worsening or no resolution of symptoms please follow up with your pcp. - Billing Disposition and Condition Condition: GOOD Disposition: Home
[2018-08-16] MEDS ORDERED: Acetaminoph/Cod 120/12 mg LIQ* 5 ML UDC PO PRN (13:36)
== END 2018-08-16 13:51 | disposition home or self-care (01) ==
LOC: UCEAST 12:18
DX: J02.9 Acute pharyngitis, unspecified (principal); J40 Bronchitis, not specified as acute or chronic; J44.9 Chronic obstructive pulmonary disease, unspecified; Z88.0 Allergy status to penicillin; Z87.891 Personal history of nicotine dependence
CPT/HCPCS: 87651; 99212; G0463

== ENCOUNTER 2018-08-22 12:55 | Emergency (ER) | payer MEDICARE, OTHER ==
[2018-08-22 13:51] VITALS: BP 156/84
[2018-08-22] MEDS ORDERED: Albuterol/Ipratropium NEB.SOL* Albuterol 2.5 MG/Ipratropium 0.5 MG 3 ML INH ONE (14:51)
--- NOTE | 2018-08-22 14:57 | ED ---
Influenza-Like Illness - HPI Summary HPI Summary: Patient presents with "flu-like" symptoms over the past week. He was seen here on 08/16/2018 diagnosed with viral pharyngitis and prescribed supportive care as well as medication to suppress cough. He reports his symptoms have been persistent since with ongoing sore throat, headache, bodyaches and cough. Cough is worse at night in the morning. He is using his albuterol inhaler 6-8 times a day. He reports relief of symptoms/can breath better after using but needs to use frequently. Has a history of COPD. Quit smoking 10 weeks ago. He is not around second hand smoke in his home but reports his lungs are sensitive to 2nd hand smokes, chemicals, etc when he's out and about. Initial exposure to grandson who is sick. Also reports some of his friends have been sick with similar sx for 10+ days. - History of Current Complaint Chief Complaint: UCGeneralIllness Time Seen by Provider: 08/22/18 14:35 Hx Obtained From: Patient - Allergy/Home Medications Allergies/Adverse Reactions: Allergies Allergy/AdvReac Type Severity Reaction Status Date / Time amoxicillin Allergy Intermediate Vomiting Verified 08/22/18 13:52 PMH/Surg Hx/FS Hx/Imm Hx Previously Healthy: Yes Endocrine/Hematology History: Denies: Hx Diabetes, Hx Thyroid Disease Cardiovascular History: Denies: Hx Congestive Heart Failure, Hx Hypertension, Hx Pacemaker/ICD, Other Cardiovascular Problems/Disorders Respiratory History: Reports: Hx Asthma, Hx Chronic Obstructive Pulmonary Disease (COPD) - h/o smoking Denies: Other Respiratory Problems/Disorders GI History: Denies: Hx Ulcer History: Denies: Hx Renal Disease Musculoskeletal History: Reports: Hx Back Problems, Other Musculoskeletal History - Chronic cervicalagia Sensory History: Reports: Hx Cataracts Denies: Hx Contacts or Glasses, Hx Hearing Aid Opthamlomology History: Reports: Hx Cataracts Denies: Hx Contacts or Glasses Neurological History: Denies: Hx Headaches Psychiatric History: Denies: Hx Panic Disorder - Surgical History Surgery Procedure, Year, and Place: C5-C7 laminectomy 2010, back surgery L5 L5 February 2016 Hx Anesthesia Reactions: No Infectious Disease History: No Infectious Disease History: Denies: Hx Clostridium Difficile, Hx Hepatitis, Hx Human Immunodeficiency Virus (HIV), Hx of Known/Suspected MRSA, Hx Shingles, Hx Tuberculosis, Hx Known/ Suspected VRE, Hx Known/Suspected VRSA, History Other Infectious Disease, Traveled Outside the [place] in Last 30 Days - Family History Known Family History: Negative: Cardiac Disease, Hypertension, Diabetes - Social History Alcohol Use: None Substance Use Type: Reports: Prescribed Substance Use Comment - Amount & Last Used: oxycodone Hx Tobacco Use: Yes - quit 10 weeks ago Smoking Status (MU): Former Smoker Type: Cigarettes Amount Used/How Often: 1/2 PPD Length of Time of Smoking/Using Tobacco: 30 years Have You Smoked in the Last Year: Yes Review of Systems Positive: Chills, Fatigue Eyes: Negative Positive: Sore Throat, Nasal Discharge Cardiovascular: Negative Positive: Shortness Of Breath, Cough Gastrointestinal: Other - reduced appetite but still eating/drinking Positive: no symptoms reported Positive: Myalgia Skin: Negative Positive: Headache. Negative: Weakness, Paresthesia, Numbness, Syncope, Slurred Speech Psychological: Normal All Other Systems Reviewed And Are Negative: Yes Physical Exam Triage Information Reviewed: Yes Vital Signs On Initial Exam: Initial Vitals Temp Pulse Resp BP Pulse Ox 99.1 F 87 18 156/84 94 08/22/18 13:48 08/22/18 13:48 08/22/18 13:48 08/22/18 13:48 08/22/18 13:48 Vital Signs Reviewed: Yes Appearance: Positive: No Pain Distress, Well-Nourished, Ill-Appearing - mild - coughing frequently Skin: Positive: Warm, Skin Color Reflects Adequate Perfusion, Dry Head/Face: Positive: Normal Head/Face Inspection Eyes: Positive: Normal, EOMI, Conjunctiva Clear. Negative: Conjunctiva Inflammed, Discharge ENT: Positive: Hearing grossly normal, Pharyngeal erythema - cobblestoning, Nasal congestion, Nasal drainage - clear, TMs normal, Uvula midline. Negative: Tonsillar swelling, Trismus, Muffled voice, Sinus tenderness Neck: Positive: Supple, Nontender, No Lymphadenopathy Respiratory/Lung Sounds: Positive: Clear to Auscultation, Breath Sounds Present. Negative: Rales, Rhonchi, Stridor, Tracheal Deviation, Wheezes, Unable to speak in full sentences, Fatigue Cardiovascular: Positive: Normal, RRR, S1, S2. Negative: Murmur, Rub Abdomen Description: Positive: Nontender, No Organomegaly, Soft Bowel Sounds: Positive: Present Musculoskeletal: Positive: Normal, Strength/ROM Intact Neurological: Positive: Normal, Sensory/Motor Intact, Alert, Oriented to Person Place, Time, CN Intact II-III Psychiatric: Positive: Normal Diagnostics - Vital Signs Vital Signs Temp Pulse Resp BP Pulse Ox 08/22/18 13:48 99.1 F 87 18 156/84 94 - Laboratory Lab Statement: Any lab studies that have been ordered have been reviewed, and results considered in the medical decision making process. Re-Evaluation - Re-Evaluation First Eval Change: Improved Flu Symptom Course/Dx - Course Course Of Treatment: CXR: Rt lung infiltrate. Vitals stable - does not need higher level care at this time. Will have pt stop albuterol and switch to rx duoneb along with levaquin. Close f/u w/ PCP this week. Danger s/sx of when to go to ED reviewed - pt agrees w/ plan. - Diagnoses Provider Diagnoses: Right lower lobe pneumonia, COPD (chronic obstructive pulmonary disease) Discharge - Sign-Out/Discharge Documenting (check all that apply): Patient Departure All imaging exams completed and their final reports reviewed: Yes - Discharge Plan Condition: Stable Disposition: HOME Prescriptions: Albuterol/Ipratropium RESP(NF) [Combivent Respimat(NF)] 1 aer IN Q6HR PRN #1 aer PRN Reason: Cough Levofloxacin TAB* [Levaquin TAB*] 750 mg PO DAILY #7 tab Patient Education Materials: COPD (Chronic Obstructive Pulmonary Disease) (ED) , Bacterial Pneumonia (ED) Referrals: Elvis Cardoso MD [Primary Care Provider] - Additional Instructions: You appear to have pneumonia Take medications as directed - stop albuterol and switch to Combivent inhaler until cleared by PCP Follow-up with PCP this week - call tomorrow to schedule an appointment. In the meantime, you may also try the following for support of symptoms: Nasal wash (netti pot or saline spray) & salt water throat gargles 2 x day Drink you body weight in ounces of water every day Sleep 8+ hours per night Avoid Dairy and sugar Hot herbal/decaf tea with lemon & honey Chicken broth (preferably organic, free range chicken) Humidifier in house, but especially near bed at night Keep home temperature at 68F or less to reduce dryness Use cough drops/throat lozenges Try a facial steam with or without eucalyptus essential oil or Jasper's Vapor rub for congestion Avoid smoke, candles, perfumes, colognes, scented soaps/detergents , air fresheners and cleaning chemicals as these can cause airway irritation and trigger coughing Start Vitamin C 1000mg every day during illness Start probiotics in between antibiotics to prevent diarrhea (ie. Yogurt and/or capsules of L. acidophilus, L. bifidus, L. casei, etc) *If you feel worse, go to ED - Billing Disposition and Condition Condition: STABLE Disposition: Home
== END 2018-08-22 15:41 | disposition home or self-care (01) ==
LOC: UCEAST 12:55
DX: J18.9 Pneumonia, unspecified organism (principal); J44.9 Chronic obstructive pulmonary disease, unspecified; J45.909 Unspecified asthma, uncomplicated; Z88.0 Allergy status to penicillin; Z87.891 Personal history of nicotine dependence
CPT/HCPCS: 71046; 99212; A9270-GY; G0463

== ENCOUNTER 2019-01-31 11:34 | Emergency (ER) | payer MEDICARE, OTHER ==
--- OUTSIDE RECORDS SUMMARY | 2019-01-31 11:42 | XMS REPORT | Continuity of Care Document ---
:1955 External Reference #:[id number] Author Name Eitan Leone DO, MPH Address [address] [place] [address], [address] [place] [address] Care Team Providers Name Role Phone Elvis Cardoso M.D. Care Team Information Student Assistant Unavailable Lisa Maurer MD Primary Care Physician Unavailable Payers Date Identification Numbers Payment Provider Subscriber Onset: 2015 Policy Number: [id number] [employer]ST Workers Compensation [employer] Number: [id number] [address] PayID: [id number] [place] [address] Family History Date Family Member(s) Observation Comments Father due to Natural Causes () [...] smoker, smokes every day Smoking Status Reviewed: 01/21/19 Patient is a current smoker, smokes every day Allergies, Adverse Reactions, Alerts Active Allergies Reaction Severity Comments Date Amoxicillin / Clavulanate 01/15/2017 Medications Active Medications SIG Qnty Indications Ordering Date Provider Oxycodone HCL si by mouth every 90tabs G89.21 Eitan Leone, 01/15/2017 10mg 8 hours as directed BOBBY ROPER Tablets chronic pain patient. fill under worker's compensation only M54.5 Ibuprofen si by mouth three times a Unknown 600mg Tablets day Albuterol Inhalation 1 puff 4 times a day Unknown 90mcg/Dose Aerosol History Medications Advair Diskus 1 puffs daily Unknown - 11/22/2018 100-50mcg/Dose Aerosol Oxycodone HCL si by mouth every 4 Unknown - 01/15/2017 10mg Tablets to 6 hours as directed chronic pain patient Levofloxacin 1 by mouth every day Unknown - 11/22/2018 750mg Tablets as directed Prednisone si twice a day Unknown - 11/22/2018 20mg Tablets Vital Signs Date Vital Result Comment 01/21/2019 1:33pm BP Systolic 140 mmHg BP Diastolic 82 mmHg Heart Rate 80 /min Respiratory Rate 20 /min Height 63 inches 5'3" Weight 158.00 lb Pain Level 7 Pain at this time. Pain Level With Medicine 6 on average with meds Pain Level Without Medicine 9 without meds BMI (Body Mass Index) 28.0 kg/m2 12/21/2018 10:24am BP Systolic 122 mmHg BP Diastolic 74 mmHg Heart Rate 76 /min Respiratory Rate 20 /min Height 63 inches 5'3" Weight 162.00 lb Pain Level 7 Pain at this time. Pain Level With Medicine 6 on average with meds Pain Level Without Medicine 9 05/26 without meds BMI (Body Mass Index) 28.7 kg/m2 11/22/2018 10:10am BP Systolic 122 mmHg BP Diastolic 74 mmHg Heart Rate 76 /min Respiratory Rate 20 /min Height 63 inches 5'3" Weight 164.00 lb Pain Level 7 Pain at this time. Pain Level With Medicine 6 on average with meds Pain Level Without Medicine 10 05/26 without meds BMI (Body Mass Index) 29.0 kg/m2 10/22/2018 10:03am BP Systolic 128 mmHg BP Diastolic 78 mmHg Heart Rate 74 /min Respiratory Rate 20 /min Height 63 inches 5'3" Weight 166.00 lb Pain Level 7 Pain at this time. Pain Level With Medicine 6 on average with meds Pain Level Without Medicine 10 05/26 without meds BMI (Body Mass Index) 29.4 kg/m2 09/24/2018 9:49am BP Systolic 136 mmHg BP Diastolic 863 mmHg Heart Rate 84 /min Respiratory Rate 20 /min Height 63 inches 5'3" Weight 154.00 lb Pain Level 7 Pain at this time. Pain Level With Medicine 6 on average with meds Pain Level Without Medicine 10 05/26 without meds BMI (Body Mass Index) 27.3 kg/m2 08/25/2018 10:06am BP Systolic 132 mmHg BP Diastolic 84 mmHg Heart Rate 86 /min Respiratory Rate 20 /min Height 63 inches 5'3" Weight 154.00 lb Pain Level 7 Pain at this time. Pain Level With Medicine 6 on average with meds Pain Level Without Medicine 05/26 without meds BMI (Body Mass Index) 27.3 kg/m2 07/26/2018 10:02am BP Systolic 122 mmHg BP [...] meds BMI (Body Mass Index) 26.6 kg/m2 Procedures Date Code Description Status 11/22/2018 66327 Omt 1-2 Body Regions Completed 08/25/2018 27133 Omt 1-2 Body Regions Completed 05/07/2018 25929 Omt 1-2 Body Regions Completed 04/22/2018 92548 Omt 1-2 Body Regions Completed 03/26/2018 35191 Omt 1-2 Body Regions Completed 02/23/2018 04528 Omt 1-2 Body Regions Completed 01/20/2018 00835 Omt 1-2 Body Regions Completed 12/21/2017 87562 Omt 1-2 Body Regions Completed 05/19/2017 85891 Omt 1-2 Body Regions Completed 04/15/2017 64486 Omt 1-2 Body Regions Completed Encounters Type Date Location Provider Dx Diagnosis Office Visit 11/22/2018 Main Office as Of Eitan Leone DO G89.21 Chronic pain due 10:15a 09/17/13 MPH to trauma M54.5 Low back pain M99.03 Segmental and somatic dysfunction of lumbar region 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 Z79.891 alf (current) use of opiate analgesic Office Visit 10/22/2018 10:00a Main Office as Eitan Leone G89.21 Chronic pain due Of 09/17/13 , MPH to trauma M54.5 Low back pain 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 Z79.891 alf (current) use of opiate analgesic Office Visit 09/24/2018 9:45a Main Office as Eitan Leone G89.21 Chronic pain due Of 09/17/13 DO, MPH to trauma M54.5 Low back pain Z79.891 alf (current) use of opiate analgesic 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 Office Visit 08/25/2018 9:45a Main Office as Eitan Leone G89.21 Chronic pain due Of 09/17/13 DO, MPH to trauma M54.5 Low back pain M99.03 Segmental and somatic dysfunction of lumbar region 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 Z79.891 alf (current) use of opiate analgesic Office Visit 07/26/2018 10:00a Main Office as Eitan Leone G89.21 Chronic pain due Of 09/17/13 DO, MPH to trauma M54.5 Low back pain Z79.891 alf (current) use of opiate analgesic Z79.891 alf (current) use of opiate analgesic Office Visit 06/23/2018 2:45p Main Office as Eitan Leone G89.Kelechi Chronic pain due Of 09/17/13 DO, MPH to trauma M54.5 Low back pain 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 Z79.891 alf (current) use of opiate analgesic Office Visit 05/07/2018 2:30p Main Office as Eitan Leone G89.Kelechi Chronic pain due Of 09/17/13 DO, MPH to trauma M54.5 Low back pain M99.03 Segmental and somatic dysfunction of lumbar region Z79.891 alf (current) use of opiate analgesic 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 Office Visit 04/22/2018 3:00p Main Office as Eitan Leone G89.Kelechi Chronic pain due Of 09/17/13 DO, MPH to trauma M54.5 Low back pain M99.03 Segmental and somatic dysfunction of lumbar region 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 Z79.891 alf (current) use of opiate analgesic Office Visit 03/26/2018 10:00a Main Office as Eitan Leone G89.21 Chronic pain due Of /08/30 DO, MPH to trauma M54.16 Radiculopathy, lumbar region M54.5 Low back pain M99.03 Segmental and somatic dysfunction of lumbar region Z79.891 alf (current) use of opiate analgesic Z79.891 alf (current) use of opiate analgesic Office Visit 02/23/2018 9:30a Main Office as Eitan Leone G89.21 Chronic pain due Of 09/17/13 DO, MPH to trauma M54.5 Low back pain M54.16 Radiculopathy, lumbar region M99.03 Segmental and somatic dysfunction of lumbar region 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 Office Visit 01/20/2018 9:30a Main Office as Eitan Leone G89.21 Chronic pain due Of 09/17/13 DO, MPH to trauma M54.5 Low back pain M99.03 Segmental and somatic dysfunction of lumbar region M54.16 Radiculopathy, lumbar region Z79.891 alf (current) use of opiate analgesic Z79.891 alf (current) use of opiate analgesic Office Visit 12/21/2017 10:15a Main Office as Eitan Leone G89.21 Chronic pain due Of 2/08/30 DO, MPH to trauma M54.5 Low back pain M54.16 Radiculopathy, lumbar region M99.03 Segmental and somatic dysfunction of lumbar region 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 Z79.891 alf (current) use of opiate analgesic Office Visit 11/20/2017 10:45a Main Office as Eitan Leone G89.21 Chronic pain due Of 09/17/13 DO, MPH to trauma M54.5 Low back pain M54.16 Radiculopathy, lumbar region Z79.891 alf (current) use of opiate analgesic Z79.891 alf (current) use of opiate analgesic Office Visit 10/21/2017 10:45a Main Office as Eitan Leone G89.21 Chronic pain due Of 09/17/13 DO, MPH to trauma M54.5 Low back pain Z79.891 alf (current) use of opiate analgesic Z79.891 alf (current) use of opiate analgesic Office Visit 09/17/2017 11:30a Main Office as Eitan Leone G89.21 Chronic pain due Of 09/17/13 DO, MPH to trauma M54.5 Low back pain 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 M54.16 Radiculopathy, lumbar region 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 Office Visit 08/19/2017 11:15a Main Office as Eitan Leone G89.21 Chronic pain due Of 09/17/13 DO, MPH to trauma M54.5 Low back pain Z79.891 alf (current) use of opiate analgesic Z79.891 alf (current) use of opiate analgesic Office Visit 07/17/2017 11:30a Main Office as Eitan Leone G89.21 Chronic pain due Of 09/17/13 DO, MPH to trauma M54.16 Radiculopathy, lumbar region M54.5 Low back pain 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 Office Visit 06/17/2017 3:15p Main Office as Eitan Leone G89.21 Chronic pain due Of 09/17/13 DO, MPH to trauma M54.16 Radiculopathy, lumbar region M96.1 Postlaminectomy syndrome, not elsewhere classified M54.5 Low back pain 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 Office Visit 05/19/2017 11:00a Main Office as Mary Medina 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 M54.16 Radiculopathy, lumbar region M96.1 Postlaminectomy syndrome, not elsewhere classified M54.5 Low back pain M99.03 Segmental and somatic dysfunction of lumbar region Z71.89 Other specified counseling Z79.891 alf (current) use of opiate analgesic Z71.6 Tobacco abuse counseling Z79.891 alf (current) use of opiate analgesic Office Visit 04/15/2017 11:45a Main Office as Mary Medina 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 M96.1 Postlaminectomy syndrome, not elsewhere classified M54.16 Radiculopathy, lumbar region M54.5 Low back pain M99.03 Segmental and somatic dysfunction of lumbar region Z71.89 Other specified counseling 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 Z79.891 alf (current) use of opiate analgesic Office Visit 03/20/2017 10:15a Main Office as Eitan Leone G89.21 Chronic pain due Of 09/17/13 DO, MPH to trauma M54.5 Low back pain M96.1 Postlaminectomy syndrome, not elsewhere classified M54.16 Radiculopathy, lumbar region 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 Z79.891 alf (current) use of opiate analgesic Office Visit 02/18/2017 9:45a Main Office as Mary Medina 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 M54.5 Low back pain M96.1 Postlaminectomy syndrome, not elsewhere classified M54.16 Radiculopathy, lumbar region 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 Office Visit 01/28/2017 3:00p Main Office as Eitan Leone G89.21 Chronic pain due Of 09/17/13 DO, MPH to trauma M96.1 Postlaminectomy syndrome, not elsewhere classified M54.5 Low back pain M54.16 Radiculopathy, lumbar region 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 Office Visit 01/15/2017 2:00p Main Office as Eitan Leone G89.21 Chronic pain due Of 09/17/13 DO, MPH to trauma M96.1 Postlaminectomy syndrome, not elsewhere classified M54.5 Low back pain M54.16 Radiculopathy, lumbar region Z71.3 Dietary counseling and surveillance Z71.89 Other specified counseling 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 Symptoms and complaints discussed and reviewed today. No significant changes in physical findings. Continue current medical pain management.M54.5 Low back painComments:Chronic. Symptoms and complaints discussed and reviewed today.No changes in physical findings. Patient is stable and comfortable when current medical therapy is rendered.M99.03 Segmental and somatic dysfunction of lumbar regionComments:Chronic. Symptoms and complaints discussed and reviewed today. Lumbar somatic dysfunctions noted warranting OMT. Continue current medical pain management and OMT. [id number]. OMT performed after evaluation. HVLA.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New Labs:Urine Drug Screen, Ordered: 01/21/19Comments:Urine drug screen sample taken. Rapid Point of Care Cup was reviewed in office with patient. Will send out UDT Rapid to [facility] lab for confirmation testing. Urine Drug Testing (UDT) was done today to monitor opiate use and to monitor possible use of illicit substances. I will discuss the results at the next appointment from the [facility] lab.The following tests were ordered:6 AM, AMPH, SINDHU, JESSICA, BUP, CARIS, COCM, COT, ETG, FENT, MCSHSG, OPI, OXY, PCP, TAPEN, XTSY, ZOLP. A urine drug test (UDT) using a rapid screen cup was ordered for this patient and collected on site today. Creatinine has been ordered as well for specimen validity, not for kidney function. Urine Drug Testing is a mandatory component of chronic opioid management, as part of the baseline assessment and ongoing re- assessment of opioid therapy. Per [place] [employer], [place] Non-Acute Pain Medical Treatment Guidelines, section F.3.d.i. This test is to be used in conjunction with other clinical information when decisions are to be made to continue, adjust or discontinue treatment. This information includes clinical observation, results of addiction screening, pill counts, and prescription drug monitoring reports. Preliminary UDT screen results are not final and should not be usedto determine patient care or plan of treatment. This sample will be sent out for a more comprehensive quantitative confirmation LCMS study. It is part of the treatment process of prescribing controlled substances and is considered standard of care at this clinic.AllComments:Continue current medical pain management; injection therapy , osteopathic manipulation, PT / modalities, and consults as needed to manage chronic pain.Non - opioid pain management discussed and optionsdiscussed.Side effects discussed; anticipatory guidance given. Patient clearly understand and agree with all medical treatments and suggestions. All medicines prescribed are adequate and appropriate for this patient's complaint of pain, medical history, physical, and personal goals.Goals of Treatment are to provide adequate and appropriate multidisciplinary medical pain management to increase/ maintain patient's quality of life and functionality while maintaining satisfactory side effect profile andminimizing long term care pharmacist end-organ damage. Importance of regular nutrition throughout the day discussed.Activity as toleratedContinue with PCP
[2019-01-31 11:59] VITALS: BP 133/86
--- NOTE | 2019-01-31 12:20 | UC ---
Respiratory Complaint HPI - HPI Summary HPI Summary: 63 yo male presents with cough. He tells me that he has a history of COPD. Over the last 3-4 days he has had an increased cough and feels congested in his chest. He does feel mildly short of breath at times. He has been taking mucinex OTC with no relief. He does have an albuterol inhaler at home, but hasn't been using it. He denies fever, chills, sinus symptoms, chest pain. - History of Current Complaint Chief Complaint: UCRespiratory Stated Complaint: COUGH CHEST CONGESTION Time Seen by Provider: 01/31/19 12:20 Hx Obtained From: Patient Onset/Duration: Gradual Onset Severity Initially: Mild Severity Currently: Mild Pain Intensity: 3 Pain Scale Used: 0-10 Numeric Character: Cough: Nonproductive - Allergies/Home Medications Allergies/Adverse Reactions: Allergies Allergy/AdvReac Type Severity Reaction Status Date / Time amoxicillin Allergy Intermediate Vomiting Verified 01/31/19 11:59 Home Medications: Home Medications Albuterol inh POWDER (NF) [Proair Respiclick] 1 inh INH Q6HR PRN 01/31/19 [ History Confirmed 01/31/19] Escitalopram Oxalate [Lexapro 10 mg] 10 mg PO DAILY 01/31/19 [History Confirmed 01/31/19] PMH/Surg Hx/FS Hx/Imm Hx - Additional Past Medical History Additional PMH: Chronic pain Respiratory History: COPD Psychological History: Anxiety - Surgical History Surgical History: Yes Surgery Procedure, Year, and Place: C5-C7 laminectomy 2010, back surgery L5 L5 February 2016 - Family History Known Family History: Negative: Cardiac Disease, Hypertension, Diabetes - Social History Lives: With Family Alcohol Use: None Substance Use Type: Prescribed Substance Use Comment - Amount & Last Used: oxycodone Smoking Status (MU): Former Smoker Type: Cigarettes Amount Used/How Often: 1/2 PPD Length of Time of Smoking/Using Tobacco: 30 years Have You Smoked in the Last Year: Yes Household Exposure Type: Cigarettes - Immunization History Most Recent Influenza Vaccination: 2014 Most Recent Tetanus Shot: unknown Most Recent Pneumonia Vaccination: none Review of Systems All Other Systems Reviewed And Are Negative: Yes Constitutional: Positive: Negative Skin: Positive: Negative Eyes: Positive: Negative ENT: Positive: Negative Respiratory: Positive: Cough Cardiovascular: Positive: Negative Gastrointestinal: Positive: Negative Neurovascular: Positive: Negative Neurological: Positive: Negative Psychological: Positive: Negative Physical Exam - Summary Physical Exam Summary: GENERAL: NAD. WDWN. No pain distress. SKIN: No rashes, sores, lesions, or open wounds. HEENT: Head: AT/NC Eyes: Conjunctiva clear without inflammation or discharge. Ears: Hearing grossly normal. TMs intact, no bulging, erythema, or edema. Nose: Nasal mucosa pink and moist. NTTP maxillary and frontal sinus. Throat: Posterior oropharynx without exudates, erythema, or tonsillar enlargement. Uvula midline. NECK: Supple. Nontender. No lymphadenopathy. CHEST: Mild wheezing throughout. Decreased breath sounds throughout. No r/r. No accessory muscle use. Breathing comfortably and in no distress. CV: RRR. Without m/r/g. Pulses intact. Cap refill <2seconds NEURO: Alert. PSYCH: Age appropriate behavior. Triage Information Reviewed: Yes Vital Signs: Initial Vital Signs Temp 98.2 F 01/31/19 11:53 Pulse 80 01/31/19 11:53 Resp 18 01/31/19 11:53 BP 133/86 01/31/19 11:53 Pulse Ox 93 01/31/19 11:53 Vital Signs Reviewed: Yes Respiratory Course/Dx - Course Course Of Treatment: CXR: IMPRESSION: PERSISTENT BIBASILAR AIRSPACE DISEASE. GIVEN THE PERSISTENCE FROM THE August EXAMINATION, RECOMMEND CONSIDERATION OF FURTHER EVALUATION WITH CT OF THE CHEST TO EXCLUDE INDOLENT PULMONARY PARENCHYMAL PATHOLOGY. Discussed results with pt. He states that he remembers being told about the findings on the CXR in august, but never followed up for these as he recently moved and switched PCPs. I strongly recommended that he schedule an appt with his PCP for further eval of his CXR findings. In the clinic he was a given a duoneb treatment and reported feeling easier work of breathing and easier to take a deep breath. In the meantime, will treat him with doxycycline and prednisone for suspected COPD exacerbation. - Differential Dx/Diagnosis Provider Diagnosis: COPD (chronic obstructive pulmonary disease) Discharge - Sign-Out/Discharge Documenting (check all that apply): Patient Departure All imaging exams completed and their final reports reviewed: Yes - Discharge Plan Condition: Stable Disposition: HOME Prescriptions: DOXYcycline CAP(*) [DOXYcycline 100MG CAP(*)] 100 mg PO BID #14 cap guaiFENesin ER TAB [Mucinex*] 600 mg PO BID #14 tab.er predniSONE TAB* [Deltasone TAB*] 50 mg PO DAILY #5 tab Patient Education Materials: COPD (Chronic Obstructive Pulmonary Disease) (DC) Referrals: No Primary Care Phys,NOPCP [Primary Care Provider] - Lisa Maurer MD [Medical Doctor] - As Soon As Possible Additional Instructions: If you develop a fever, shortness of breath, chest pain, new or worsening symptoms - please call your PCP or go to the ED immediately. Your blood pressure was high at todays visit. Please see your primary provider within 4 weeks for recheck and re-evaluation. As discussed at your visit today, there are persisting findings on your chest X- Ray that require further evaluation. I recommend that you follow up with your primary doctor within 1-2 weeks for a further evaluation of your cough and findings today. - Billing Disposition and Condition Condition: STABLE Disposition: Home
[2019-01-31] MEDS ORDERED: Albuterol/Ipratropium NEB.SOL* Albuterol 2.5 MG/Ipratropium 0.5 MG 3 ML INH ONE (12:25)
== END 2019-01-31 13:15 | disposition home or self-care (01) ==
LOC: UCEAST 11:34
DX: J44.9 Chronic obstructive pulmonary disease, unspecified (principal); F41.9 Anxiety disorder, unspecified
CPT/HCPCS: 71046; 99212; A9270-GY; G0463

== ENCOUNTER 2019-05-24 11:19 | Emergency (ER) | payer MEDICARE ==
--- OUTSIDE RECORDS SUMMARY | 2019-05-24 11:26 | XMS REPORT | Continuity of Care Document ---
:1955 External Reference #:[id number] Author Name Eitan Leone DO, MPH Address [address] [place] [address], [address] [place] [id number] Care Team Providers Name Role Phone Elvis Cardoso M.D. - Internal Care Team Information Sanitation Worker [employer] [phone] Medicine Lisa Maurer MD - Internal Medicine Care Team Information Sanitation Worker [employer] [phone] Problems Description No Information Available Social History Type Date Description Comments Sex Unknown Cigarette Use Current Cigarette Smoker 1/2 Pack Daily ETOH Use Denies alcohol use Tobacco Use Start: Unknown Patient is a current smoker, smokes every day Smoking Status Reviewed: 02/21/19 Patient is a current smoker, smokes every day Allergies, Adverse Reactions, Alerts Active Allergies Reaction Severity Comments Date Amoxicillin / Clavulanate 01/15/2017 Medications Active Medications SIG Qnty Indications Ordering Provider Date Oxycodone HCL si-2 by mouth 180tabs G89.21 Eitan Leone DO, 03/21/2019 5mg every 8 hours as MPH Tablets directed chronic pain patient M54.5 Ibuprofen si by mouth three times a Unknown 600mg Tablets day Albuterol Inhalation 1 puff 4 times a day Unknown 90mcg/Dose Aerosol Anoro Ellipta Unknown 62.5-25mcg/Inh Aerosol Immunizations Description No Information Available Vital Signs Date Vital Result Comment 04/22/2019 10:53am BP Systolic 126 mmHg BP Diastolic 74 mmHg Heart Rate 76 /min Respiratory Rate 20 /min Height 63 inches 5'3" Weight 156.00 lb Pain Level 7 Pain at this time. Pain Level With Medicine 6 on average with meds Pain Level Without Medicine 9 without meds BMI (Body Mass Index) 27.6 kg/m2 03/21/2019 10:37am BP Systolic 128 mmHg BP Diastolic 84 mmHg Heart Rate 86 /min Respiratory Rate 20 /min Height 63 inches 5'3" Weight 158.00 lb Pain Level 6 Pain at this time. Pain Level With Medicine 5 on average with meds Pain Level Without Medicine 9 without meds BMI (Body Mass Index) 28.0 kg/m2 Results Description No Information Available Procedures Date Code Description Status 03/21/2019 69637 Omt 1-2 Body Regions Completed 01/21/2019 03355 Omt 1-2 Body Regions Completed 11/22/2018 90702 Omt 1-2 Body Regions Completed Medical Devices Description No Information Available Encounters Type Date Location Provider Dx Diagnosis Office Visit 03/21/2019 Main Office as Of Eitan Leone DO G89.21 Chronic pain due 10:30a 09/17/13 MPH to trauma M54.5 Low back pain M99.03 Segmental and somatic dysfunction of lumbar region 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 Office Visit 02/21/2019 10:15a Main Office as Eitan Leone G89.21 Chronic pain due Of 09/17/13 DO, MPH to trauma M54.5 Low back pain Z79.891 long-term (current) use of opiate analgesic 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 Office Visit 01/21/2019 1:30p Main Office as Eitan Leone G89.21 Chronic pain due Of 09/17/13 DO, MPH to trauma M54.5 Low back pain M99.03 Segmental and somatic dysfunction of lumbar region Z79.891 long-term (current) use of opiate analgesic Z79.891 long-term (current) use of opiate analgesic Office Visit 11/22/2018 10:15a Main Office as Eitan Leone G89.21 Chronic pain due Of 09/17/13 DO, MPH to trauma M54.5 Low back pain M99.03 Segmental and somatic dysfunction of lumbar region Z79.891 long-term (current) use of opiate analgesic 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 Assessments Date Code Description Provider 04/22/2019 G89.21 Chronic pain due to trauma Leone, Eitan, DO, MPH 04/22/2019 M54.5 Low back pain Leone, Eitan, DO, MPH 04/22/2019 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 Leone, Eitan , DO, MPH 04/22/2019 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 Leone, Eitan , DO, MPH 03/21/2019 G89.21 Chronic pain due to trauma Leone, Eitan, DO, MPH 03/21/2019 M54.5 Low back pain Leone, Eitan, DO, MPH 03/21/2019 M99.03 Segmental and somatic dysfunction of lumbar Leone, Eitan, DO, MPH region 03/21/2019 Z79.891 long-term (current) use of opiate analgesic Leone, Eitan , DO, MPH 03/21/2019 Z79.891 long-term (current) use of opiate analgesic Leoen, Eitan , DO, MPH 02/21/2019 G89.21 Chronic pain due to trauma Leone, Eitan, DO, MPH 02/21/2019 M54.5 Low back pain Leone, Eitan, DO, MPH 02/21/2019 Z79.891 long-term (current) use of opiate analgesic Leone, Eitan , DO, MPH 02/21/2019 Z79.891 long-term (current) use of opiate analgesic Leone, Eitan , DO, MPH 01/21/2019 G89.21 Chronic pain due to trauma Leone, Eitan, DO, MPH 01/21/2019 M54.5 Low back pain Leone, Eitan, DO, MPH 01/21/2019 M99.03 Segmental and somatic dysfunction of lumbar Leone, Eitan, DO, MPH region 01/21/2019 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 Leone, Eitan , DO, MPH 01/21/2019 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 Leone, Eitan , DO, MPH 12/21/2018 G89.21 Chronic pain due to trauma Leone, Eitan, DO, MPH 12/21/2018 M54.5 Low back pain Leone, Eitan, DO, MPH 12/21/2018 M99.03 Segmental and somatic dysfunction of lumbar Eitan Leone DO MPH region 12/21/2018 Z79.891 long-term (current) use of opiate analgesic Eitan Leone DO MPH 12/21/2018 Z79.891 long-term (current) use of opiate analgesic Eitan Leone DO MPH 11/22/2018 G89.21 Chronic pain due to trauma Eitan Leone DO MPH 11/22/2018 M54.5 Low back pain Eitan Leone DO MPH 11/22/2018 M99.03 Segmental and somatic dysfunction of lumbar Eitan Leone DO, MPH region 11/22/2018 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 Symptoms and complaints discussed and reviewed today. No significant changes in physical findings. Continue current medical pain management.M54.5 Low back painComments:Chronic. Symptoms and complaints discussed and reviewed today.No changes in physical findings. Patient is stable and comfortable when current medical therapy is rendered.Z79.891 terminal manager ( current) use of opiate analgesicNew Labs:Urine Drug Screen, Ordered: Comments:Urine drug screen sample taken. Rapid Point of [...] and ongoing re-assessment of opioid therapy. Per [place] [employer], [place] Non- Acute Pain Medical Treatment Guidelines, section F.3.d.i. This [...] is considered standard of care at this clinic.AllComments: Continue current medical pain management; injection therapy, osteopathic manipulation, PT / modalities, and consults [...] while maintaining satisfactory side effect profile andminimizing penitentiary end-organ damage. Importance of regular nutrition throughout the day discussed.Activity as toleratedContinue with PCP Functional Status Description No Information Available Mental Status Description No Information Available Referrals Description No Information Available
[2019-05-24 11:45] VITALS: BP 119/72
--- NOTE | 2019-05-24 12:05 | UC ---
Throat Pain/Nasal Kayode HPI - HPI Summary HPI Summary: 63-year-old male who has had head congestion, runny nose and sore throat over the past 2-3 days. 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 - History of Current Complaint Chief Complaint: UCRespiratory Stated Complaint: RESP ISSUE SORE THROAT Time Seen by Provider: 05/24/19 11:58 Hx Obtained From: Patient Onset/Duration: Gradual Onset Severity: Mild Pain Intensity: 6 Cough: Nonproductive Associated Signs & Symptoms: Positive: Nasal Discharge, Fever - Allergies/Home Medications Allergies/Adverse Reactions: Allergies Allergy/AdvReac Type Severity Reaction Status Date / Time amoxicillin Allergy Intermediate Vomiting Verified 05/24/19 11:47 PMH/Surg Hx/FS Hx/Imm Hx Previously Healthy: Yes Respiratory History: COPD - Surgical History Surgical History: Yes Surgery Procedure, Year, and Place: C5-C7 laminectomy 2010, back surgery L5 L5 February 2016 - Family History Known Family History: Negative: Cardiac Disease, Hypertension, Diabetes - Social History Alcohol Use: None Substance Use Type: None Substance Use Comment - Amount & Last Used: oxycodone Smoking Status (MU): Former Smoker Type: Cigarettes Amount Used/How Often: 1/2 PPD Length of Time of Smoking/Using Tobacco: 30 years Have You Smoked in the Last Year: Yes Household Exposure Type: Cigarettes - Immunization History Most Recent Influenza Vaccination: 2014 Most Recent Tetanus Shot: unknown Most Recent Pneumonia Vaccination: none Review of Systems All Other Systems Reviewed And Are Negative: Yes Constitutional: Positive: Fever - Fever has resolved. ENT: Positive: Sore Throat, Nasal Discharge, Sinus Congestion Respiratory: Positive: Cough - Nonproductive cough. Is Patient Immunocompromised?: No Physical Exam Triage Information Reviewed: Yes Appearance: Well-Appearing, No Pain Distress, Well-Nourished Vital Signs: Initial Vital Signs Temp 98.9 F 05/24/19 11:42 Pulse 72 05/24/19 11:42 Resp 18 05/24/19 11:42 BP 119/72 05/24/19 11:42 Pulse Ox 97 05/24/19 11:42 Vital Signs Reviewed: Yes Eyes: Positive: Conjunctiva Clear ENT: Positive: Hearing grossly normal, Pharyngeal erythema - Mild tonsillar erythema, no exudate, Nasal congestion, Nasal drainage - Clear nasal coryza., TMs normal, Uvula midline Neck: Positive: Supple, Nontender, No Lymphadenopathy Respiratory: Positive: Lungs clear, Normal breath sounds, No respiratory distress, No accessory muscle use Cardiovascular: Positive: RRR, No Murmur, Pulses Normal, Brisk Capillary Refill Musculoskeletal Exam: Normal Neurological Exam: Normal Psychological Exam: Normal Skin Exam: Normal Throat Pain/Nasal Course/Dx - Course Course Of Treatment: Rapid strep test: Negative At this point time I believe this is a viral upper respiratory illness. The patient's to follow-up with his primary care provider if no improvement in 3 or 4 days. He can take comfort measures such as throat lozenges, warm saltwater gargles. Patient is agreeable to this plan of action. - Differential Dx/Diagnosis Provider Diagnosis: URI (upper respiratory infection) Discharge ED - Sign-Out/Discharge Documenting (check all that apply): Patient Departure All imaging exams completed and their final reports reviewed: No Studies - Discharge Plan Condition: Good Disposition: HOME Patient Education Materials: Upper Respiratory Infection (DC) Referrals: Lisa Maurer MD [Primary Care Provider] - Additional Instructions: Increase fluids, warm saltwater gargles, throat lozenges. Definite follow-up with your primary care provider if no improvement in approximately 4 or 5 days. - Billing Disposition and Condition Condition: GOOD Disposition: Home
== END 2019-05-24 12:30 | disposition home or self-care (01) ==
LOC: UCEAST 11:19
DX: J06.9 Acute upper respiratory infection, unspecified (principal); Z88.0 Allergy status to penicillin; J44.9 Chronic obstructive pulmonary disease, unspecified; Z87.891 Personal history of nicotine dependence
CPT/HCPCS: 87651; 99211; G0463

== ENCOUNTER 2019-08-13 16:19 | Emergency (ER) | payer MEDICARE ==
[2019-08-13] MEDS ORDERED: Ketorolac INJ* 30 MG/ML 1 ML VIAL IM ONE (16:32)
--- NOTE | 2019-08-13 16:38 | ED ---
Neck Pain - HPI Summary HPI Summary: 64 y/o male presents to [facility] complaining of left neck pain radiating to the left chest and LUE. Patient characterizes this pain as muscular. Onset of pain occurred on 08/10/19 after lifting heavy objects. He complains of left arm weakness, tingling, and spasms. Pain is worsened by breathing deeply but moving the left arm does not worsen the pain. The patient also took ibuprofen this morning. - History of Current Complaint Chief Complaint: EDBackInjuryPain Stated Complaint: UPPER BACK PAIN Time Seen by Provider: 08/13/19 16:22 Hx Obtained From: Patient Onset/Duration Of Injury/Symptoms: Days Mechanism Of Injury: Other - lifting Onset/Duration: Started days ago, Still Present Pain Intensity: 7 Pain Scale Used: 0-10 Numeric Character: Spasmotic, Other: - muscle Aggravating Factors: Other: - deep breaths Associated Signs & Symptoms: Positive: Weakness, Paresthesia - Allergies/Home Medications Allergies/Adverse Reactions: Allergies Allergy/AdvReac Type Severity Reaction Status Date / Time amoxicillin Allergy Intermediate Vomiting Verified 08/13/19 16:30 Home Medications: Home Medications Fluticasone/Umeclidin/Vilanter [Trelegy Ellipta 100-62.5-25] 1 puff PO DAILY [History Confirmed 08/13/19] PMH/Surg Hx/FS Hx/Imm Hx Endocrine/Hematology History: Denies: Hx Diabetes, Hx Thyroid Disease Cardiovascular History: Denies: Hx Congestive Heart Failure, Hx Hypertension, Hx Pacemaker/ICD, Other Cardiovascular Problems/Disorders Respiratory History: Reports: Hx Asthma, Hx Chronic Obstructive Pulmonary Disease (COPD) - h/o smoking Denies: Other Respiratory Problems/Disorders GI History: Denies: Hx Ulcer History: Denies: Hx Renal Disease Musculoskeletal History: Reports: Hx Back Problems, Other Musculoskeletal History - Chronic cervicalagia Sensory History: Reports: Hx Cataracts Denies: Hx Contacts or Glasses, Hx Hearing Aid Opthamlomology History: Reports: Hx Cataracts Denies: Hx Contacts or Glasses Neurological History: Denies: Hx Headaches Psychiatric History: Denies: Hx Panic Disorder - Surgical History Surgery Procedure, Year, and Place: C5-C7 laminectomy 2010, back surgery L5 L5 February 2016 Hx Anesthesia Reactions: No Infectious Disease History: No Infectious Disease History: Denies: Hx Clostridium Difficile, Hx Hepatitis, Hx Human Immunodeficiency Virus (HIV), Hx of Known/Suspected MRSA, Hx Shingles, Hx Tuberculosis, Hx Known/ Suspected VRE, Hx Known/Suspected VRSA, History Other Infectious Disease, Traveled Outside the [place] in Last 30 Days - Family History Known Family History: Negative: Cardiac Disease, Hypertension, Diabetes - Social History Alcohol Use: None Substance Use Type: Reports: None Substance Use Comment - Amount & Last Used: oxycodone Hx Tobacco Use: Yes - quit 10 weeks ago Smoking Status (MU): Former Smoker Type: Cigarettes Amount Used/How Often: 1/2 PPD Length of Time of Smoking/Using Tobacco: 30 years Have You Smoked in the Last Year: Yes Review of Systems Positive: Myalgia - left neck pain with radiation to LUE and chest Positive: Weakness, Paresthesia All Other Systems Reviewed And Are Negative: Yes Physical Exam - Summary Physical Exam Summary: Appearance: The patient is well-nourished in no acute distress and in no acute pain. Skin: The skin is warm and dry, and skin color reflects adequate perfusion. HEENT: The head is normocephalic and atraumatic. The pupils are equal and reactive. The conjunctivae are clear and without drainage. Nares are patent and without drainage. Mouth reveals moist mucous membranes, and the throat is without erythema and exudate. The external ears are intact. The ear canals are patent and without drainage. The tympanic membranes are intact. Neck: The neck is supple with full range of motion and non-tender. There are no carotid bruits. There is no neck vein distension. Respiratory: Chest is non-tender. Lungs are clear to auscultation and breath sounds are symmetrical and equal. Cardiovascular: Heart is regular rate and rhythm. There is no murmur or rub auscultated. There is no peripheral edema and pulses are symmetrical and equal. Abdomen: The abdomen is soft and non-tender. There are normal bowel sounds heard in all four quadrants and there is no organomegaly palpated. Musculoskeletal: There is no back tenderness noted. Extremities are non-tender with full range of motion. There is good capillary refill. There is no peripheral edema or calf tenderness elicited. Neurological: Patient is alert and oriented to person, place and time. The patient has symmetrical motor strength in all four extremities. Cranial nerves are grossly intact. Deep tendon reflexes are symmetrical and equal in all four extremities. Psychiatric: The patient has an appropriate affect and does not exhibit any anxiety or depression. Triage Information Reviewed: Yes Vital Signs On Initial Exam: Initial Vitals Temp Pulse Resp BP Pulse Ox 97.9 F 87 16 174/90 94 08/13/19 16:25 08/13/19 16:25 08/13/19 16:25 08/13/19 16:25 08/13/19 16:25 Vital Signs Reviewed: Yes Procedures - Sedation Patient Received Moderate/Deep Sedation with Procedure: No Diagnostics - Vital Signs Vital Signs Temp Pulse Resp BP Pulse Ox 08/13/19 16:25 97.9 F 87 16 174/90 94 - Laboratory Lab Statement: Any lab studies that have been ordered have been reviewed, and results considered in the medical decision making process. - Radiology CXR Radiology Interpretation Completed By: Radiologist Summary of Radiographic Findings: IMPRESSION: RIGHT MIDDLE LOBE INFILTRATE. THIS REPORT WAS REVIEWED BY ED PHYSICIAN. Neck Course/Dx - Course Course Of Treatment: Mr. Diallo presented with what seemed to be a cervical radiculopathy on the left. Unexpectedly the radiologist felt that he had a right-sided infiltrate. Patient did not have any symptoms associated with labs are normal. We discussed it and he wanted to take antibiotics to be on the safe side and I recommended close follow-up. - Diagnoses Provider Diagnoses: Cervical strain, PNA (pneumonia) Discharge ED - Sign-Out/Discharge Documenting (check all that apply): Patient Departure - DC - Discharge Plan Condition: Stable Disposition: HOME Prescriptions: DOXYcycline CAP(*) [DOXYcycline 100MG CAP(*)] 100 mg PO BID #20 cap HYDROcodone/ACETAMIN 5-325 MG* [[place] 5-325 TAB*] 1 tab PO Q6H PRN #20 tab MDD 4 PRN Reason: Pain Patient Education Materials: Cervical Strain (ED), Pneumonia (ED) Referrals: Lisa Maurer MD [Primary Care Provider] - Additional Instructions: Follow up with Primary Care Physician in 1-3 days. If you experience new or worsening symptoms please return to the ER. - Billing Disposition and Condition Condition: STABLE Disposition: Home - Attestation Statements Document Initiated by Scribe: Yes Documenting Scribe: FARHANA SUAREZ Provider For Whom Scribe is Documenting (Include Credential): BRIAN JAMIL MD Scribe Attestation: FARHANA Sahu, scribed for BRIAN JAMIL MD on 08/15/19 at 1507. Scribe Documentation Reviewed: Yes Provider Attestation: The documentation as recorded by the scribe, FARAHNA SUAREZ accurately reflects the service I personally performed and the decisions made by me, BRIAN JAMIL MD Status of Scribe Document: Viewed
--- OUTSIDE RECORDS SUMMARY | 2019-08-13 16:47 | XMS REPORT | Continuity of Care Document ---
:1955 External Reference #:[id number] Author Name Arash Mackey MD (transmitted by agent of provider Sharon Tanner) Address [address], [address] [place] [id number] Care Team Providers Name Role Phone Sampson Enriquez MD - Gastroenterology Care Team Information Corn Lab Technician [phone] Oliver Winston MD, [facility] - Care Team Information Corn Lab Technician Cardiovascular Disease Eitan Leone DO - Interventional Care Team Information Corn Lab Technician Pain Medicine Marie Cardenas MD - Pulmonary Care Team Information Corn Lab Technician Disease Lisa Maurer MD - Internal Medicine Care Team Information Corn Lab Technician Problems Active Problems Provider Date Neck pain Qamar Bullard M.D. Onset: 03/30/2015 Asthma Qamar Bullard M.D. Onset: 03/30/2015 Displacement of lumbar intervertebral disc Elvis Cardoso M.D. Onset: 07/2016 without myelopathy Convalescence after surgery Eder Fowler M.D. Onset: 02/20/2016 Lumbar radiculopathy Eder Fowler M.D. Onset: 06/09/2016 Thoracic and lumbosacral neuritis Elvis Cardoso M.D. Onset: 12/05/2016 Chronic obstructive lung disease Elvis Cardoso M.D. Onset: 03/11/2017 Solitary nodule of lung Elvis Cardoso M.D. Onset: 04/13/2017 Disorder of lung Marie Cardenas MD Onset: 04/22/2017 Thyroid nodule Marie Cardenas MD Onset: 04/22/2017 Anxiety state Elvis Cardoso M.D. Onset: 06/24/2018 Chronic obstructive pulmonary disease with Elvis Cardoso M.D. Onset: 03/2018 (acute) exacerbation Social History Type Date Description Comments Sex Unknown Tobacco Use Start: Unknown End: Former Cigarette Smoker 1 Unknown Pack Daily Cigarette Use Pack Years - 30 Smoking Status Reviewed: 06/22/19 Former Cigarette Smoker 1 Pack Daily ETOH Use Denies alcohol use Recreational Drug Use Denies Drug Use Tobacco Use Start: Unknown End: Patient is a former smoker Unknown Exercise Type/Frequency Does not exercise Allergies, Adverse Reactions, Alerts Active Allergies Reaction Severity Comments Date Amoxicillin 04/10/2017 Inactive Allergies NKDA 03/14/2014 Medications Active Medications SIG Qnty Indications Ordering Provider Date Proair HFA 2 puffs ih 8.500gm J44.1 Lisa Maurer MD 06/24/2018 108(90Base) every 4 hours mcg/Act Aerosol as needed Escitalopram Oxalate Take 1 Tablet 30tabs F41.9 Lisa Maurer MD 05/06/2018 10mg By Mouth Once Tablets Daily Oxycodone HCL 1 tab 8h as M51.16 Eitan Leone, 10mg needed Tablets History Medications Trelegy Ellipta 1 inhalation by 60units J98.4 Arash Mackey 03/02/2019 - mouth every day 04/01/2019 100-62.5-25mcg/Inh Aerosol Immunizations CPT Code Status Date Vaccine Reaction Lot # [id number] Given 03/10/2019 Pneumonia Vaccine 50961 Given 05/06/2018 Influenza Virus Vaccine, [id number] Quadrivalent, Split, Preservative Free 22751 Given 06/16/2017 Influenza Virus Vaccine, no immediate reaction , [id number] Quadrivalent, Split, pt tolerated well Preservative Free 32246 Given 04/13/2017 Pneumonia Vaccine [id number] Vital Signs Date Vital Result Comment 06/22/2019 2:48pm Height 63 inches 5'3" Weight 168.00 lb Heart Rate 80 /min BP Systolic 122 mmHg BP Diastolic 64 mmHg O2 % BldC Oximetry 93 % BMI (Body Mass Index) 29.8 kg/m2 03/02/2019 10:57am Height 63 inches 5'3" Weight 160.00 lb Heart Rate 76 /min BP Systolic Sitting 112 mmHg Lue regular cuff BP Diastolic Sitting 74 mmHg Lue regular cuff Respiratory Rate 12 /min O2 % BldC Oximetry 88 % BMI (Body Mass Index) 28.3 kg/m2 Neck Circumference in inches 15.75 Results Test Acquired Date Facility Test Result H/L Range Note Laboratory test 05/24/2019 [facility] Rapid Strep Negative Negative [address] [place] [address] [phone] BUN/Creat/GFR 03/04/2019 [facility] Poc Blood Urea < 5 mg/dL Low 8-[address] [place] [address] [phone] Poc Creatinine 0.9 mg/dL Normal 0.6-1.3 2 Poc BUN/Creatinine Ratio 5.6 Low 8-20 Egfr Non- 85.2 >60 Egfr 103.1 >60 3 1 Fishing Reel Assembler: [id number] 2 Fishing Reel Assembler: [id number] 3 Because ethnic data is not always readily available, this report includes an eGFR for both -Americans and non- Americans. The National Kidney Disease Education Program (NKDEP) does not endorse the use of the MDRD equation for patients that are not between the ages of 18 and 70, are , have extremes of body size, muscle mass, or nutritional status, or are non- or non-. According to the National Kidney Foundation, irrespective of diagnosis, the stage of the disease is based on the level of kidney function: Stage Description GFR(mL/min/1.73 m(2)) 1 Kidney damage with normal or decreased GFR 90 2 Kidney damage with mild decrease in GFR 60-89 3 Moderate decrease in GFR 30-59 4 Severe decrease in GFR 15-29 5 Kidney failure <15 (or dialysis) Procedures Date Code Description Status 06/15/2015 86073211 Colonoscopy Completed Medical Devices Description No Information Available Encounters Type Date Location Provider Dx Diagnosis Office Visit 03/02/2019 Pulmonology And Arash Mackey MD J98.4 Other disorders 11:20a [facility] Of of lung Lining Scrubber R91.8 Other nonspecific abnormal finding of lung field Office Visit 02/22/2019 10:40a Lining Scrubber Internal Lisa Erasto, R91.8 Other nonspecific Medicine - Ccmob abnormal finding of lung field J44.9 Chronic obstructive pulmonary disease, unspecified Assessments Date Code Description Provider 06/22/2019 J44.9 Chronic obstructive pulmonary disease, unspecified Arash Mackey MD 03/02/2019 J98.4 Other disorders of lung Arash Mackey MD 03/02/2019 R91.8 Other nonspecific abnormal finding of lung field Arash Mackey MD 02/22/2019 R91.8 Other nonspecific abnormal finding of lung field Lisa Maurer MD 02/22/2019 J44.9 Chronic obstructive pulmonary disease, unspecified Lisa Maurer MD Plan of Treatment 06/22/2019 - Arash Mackey MDJ44.9 Chronic obstructive pulmonary disease, unspecifiedNew Xrays:CT Lung Screening-Low Dose, Ordered: 06/22/19Comments:The patient should continue Trelegy inhaler as well as ProAir as needed.The patient is eligible to participate in a low dose CT for lung cancer screening. I have also instructed the patient to follow-up with his primary care physician regarding the thyroid nodule. Thyroid nodules is unchanged on the CAT scan. Functional Status Description No Information Available Mental Status Description No Information Available Referrals Refer to Reason for Referral Status Appt Date Marie Cardenas MD Sent 03/02/[address] [place] [id number] [phone]
--- OUTSIDE RECORDS SUMMARY | 2019-08-13 16:47 | XMS REPORT | Continuity of Care Document ---
:1955 External Reference #:[id number] Author Name Eitan Leone DO, MPH Address [address] [place] [address], [address] [place] [id number] Care Team Providers Name Role Phone Elvis Cardoso M.D. - Internal Care Team Information Asset Protection Associate [phone] Medicine Lisa Maurer MD - Internal Medicine Care Team Information Asset Protection Associate [phone] Problems Description No Information Available Social History Type Date Description Comments Sex Unknown Cigarette Use Current Cigarette Smoker 1/2 Pack Daily ETOH Use Denies alcohol use Tobacco Use Start: Unknown Patient is a current smoker, smokes every day Smoking Status Reviewed: 06/23/19 Patient is a current smoker, smokes every [...] Available Vital Signs Date Vital Result Comment 06/23/2019 10:52am BP Systolic 128 mmHg BP Diastolic 84 mmHg Heart Rate 80 /min Respiratory Rate 20 /min Height 63 inches 5'3" Weight 171.00 lb Pain Level 7 Pain at this time. Pain Level With Medicine 6 on average with meds Pain Level Without Medicine 9 without meds BMI (Body Mass Index) 30.3 kg/m2 05/24/2019 10:36am BP Systolic 130 mmHg BP Diastolic 78 mmHg Heart Rate 76 /min Respiratory Rate 20 /min Height 63 inches 5'3" Weight 170.00 lb Pain Level 7 Pain at this time. Pain Level With Medicine 6 on average with meds Pain Level Without Medicine 9 without meds BMI (Body Mass Index) 30.1 kg/m2 Results Description No Information Available Procedures Date Code Description Status 05/24/2019 98514 Omt 1-2 Body Regions Completed 03/21/2019 02359 Omt 1-2 Body Regions Completed 01/21/2019 50219 Omt 1-2 Body Regions Completed Medical Devices Description No Information Available Encounters Type Date Location Provider Dx Diagnosis Office Visit 05/24/2019 Main Office as Of Eitan Leone DO, G89.21 Chronic pain due 10:30a 09/17/13 MPH to trauma M54.5 Low back pain M99.03 Segmental and somatic dysfunction of lumbar region Z79.891 buttermaker continuous churn (current) use of opiate analgesic Z79.891 buttermaker continuous churn (current) use of opiate analgesic Office Visit 04/22/2019 10:30a Main Office as Eitan Leone G89.21 Chronic pain due Of 09/17/13 DO, MPH to trauma M54.5 Low back pain Z79.891 alf (current) use of opiate analgesic Z79.891 buttermaker continuous churn (current) use of opiate analgesic Office Visit 03/21/2019 10:30a Main Office as Eitan Leone G89.21 Chronic pain due Of 09/17/13 DO, MPH to trauma M54.5 Low back pain M99.03 Segmental and somatic dysfunction of lumbar region Z79.891 buttermaker continuous churn (current) use of opiate analgesic Z79.891 alf (current) use of opiate analgesic Office Visit 02/21/2019 10:15a Main Office as Eitan Leone G89.Kelechi Chronic pain due Of 09/17/13 DO, MPH to trauma M54.5 Low back pain Z79.891 alf (current) use of opiate analgesic Z79.891 alf (current) use of opiate analgesic Office Visit 01/21/2019 1:30p Main Office as Leone, Eitan, G89.21 Chronic pain due Of 09/17/13 DO, MPH to trauma M54.5 Low back pain M99.03 Segmental and somatic dysfunction of lumbar region Z79.891 buttermaker continuous churn (current) use of opiate analgesic Z79.891 buttermaker continuous churn (current) use of opiate analgesic Assessments Date Code Description Provider 06/23/2019 G89.21 Chronic pain due to trauma Leone, Eitan, DO, MPH 06/23/2019 M54.5 Low back pain Leone, Eitan, DO, MPH 06/23/2019 Z79.891 buttermaker continuous churn (current) use of opiate analgesic Leone, Eitan , DO, MPH 06/23/2019 Z79.891 alf (current) use of opiate analgesic Leone, Eitan , DO, MPH 05/24/2019 G89.21 Chronic pain due to trauma Leone, Eitan, DO, MPH 05/24/2019 M54.5 Low back pain Leone, Eitan, DO, MPH 05/24/2019 M99.03 Segmental and somatic dysfunction of lumbar Leone, Eitan, DO, MPH region 05/24/2019 Z79.891 buttermaker continuous churn (current) use of opiate analgesic Leone, Eitan , DO, MPH 05/24/2019 Z79.891 alf (current) use of opiate analgesic Leone, Eitan , DO, MPH 04/22/2019 G89.21 Chronic pain due to trauma Leone, Eitan, DO, MPH 04/22/2019 M54.5 Low back pain Leone, Eitan, DO, MPH 04/22/2019 Z79.891 buttermaker continuous churn (current) use of opiate analgesic Leone, Eitan , DO, MPH 04/22/2019 Z79.891 alf (current) use of opiate analgesic Leone, Eitan , DO, MPH 03/21/2019 G89.21 Chronic pain due to trauma Leone, Eitan, DO, MPH 03/21/2019 M54.5 Low back pain Leone, Eitan, DO, MPH 03/21/2019 M99.03 Segmental and somatic dysfunction of lumbar Leone, Eitan, DO, MPH region 03/21/2019 Z79.891 buttermaker continuous churn (current) use of opiate analgesic Leone, Eitan , DO, MPH 03/21/2019 Z79.891 alf (current) use of opiate analgesic Eitan Leone DO, MPH 02/21/2019 G89.21 Chronic pain due to trauma Eitan Leone DO MPH 02/21/2019 M54.5 Low back pain Eitan Leone DO MPH 02/21/2019 Z79.891 alf (current) use of opiate analgesic Eitan Leone DO MPH 02/21/2019 Z79.891 buttermaker continuous churn (current) use of opiate analgesic Eitan Leone DO, MPH 01/21/2019 G89.21 Chronic pain due to trauma Eitan Leone DO MPH 01/21/2019 M54.5 Low back pain Eitan Leone DO MPH 01/21/2019 M99.03 Segmental and somatic dysfunction of lumbar Eitan Leone DO MPH region 01/21/2019 Z79.891 alf (current) use of opiate analgesic Eitan Leone DO MPH 01/21/2019 Z79.891 buttermaker continuous churn (current) use of opiate analgesic Eitan Leone DO, MPH Plan of Treatment Future Appointment(s):07/21/2019 10:30 am - Eitan Leone DO MPH at Main Office as Of 09/17/1410 - Eitan Leone DO, MPHG89.21 Chronic pain due to traumaComments:Chronic. Symptoms and complaints discussed and reviewed today. No significant changes in physical findings. Continue current medical pain management.M54.5 Low back painComments:Chronic. Symptoms and complaints discussed and reviewed today.No changes in physical findings. Patient is stable and comfortable when current medical therapy is rendered.Z79.891 buttermaker continuous churn ( current) use of opiate analgesicNew Labs:Urine [...] AM, AMPH, SINDHU, JESSICA, BUP, CARIS, COCM, ETG, FENT, MCSHSG, OPI, OXY, PCP, TAPEN, [...] and ongoing re-assessment of opioid therapy. Per [facility] Workers' Compensation Board, [place] Non- Acute Pain Medical Treatment Guidelines, section [...] while maintaining satisfactory side effect profile andminimizing technician terminal and repeater end-organ damage. Importance of regular nutrition throughout the day discussed.Activity as toleratedContinue with PCP Functional Status Description No Information Available Mental Status Description No Information Available Referrals Description No Information Available
--- OUTSIDE RECORDS SUMMARY | 2019-08-13 16:47 | XMS REPORT | Continuity of Care Document ---
:1955 External Reference #:[id number] Author Name Eitna Leone DO, MPH Address [address] [place] [address], [address] [place] [phone] Care Team Providers Name Role Phone Elvis Cardoso M.D. - Internal Care Team Information Subassembly Assembler Medicine Lisa Maurer MD - Internal Medicine Care Team Information Subassembly Assembler [phone] Problems Description No Information Available Social History Type Date Description Comments Sex Unknown Cigarette Use Current Cigarette Smoker 1/2 Pack Daily ETOH Use Denies alcohol use Tobacco Use Start: Unknown Patient is a current smoker, smokes every day Smoking Status Reviewed: 07/21/19 Patient is a current smoker, smokes every [...] Available Vital Signs Date Vital Result Comment 07/21/2019 10:22am BP Systolic 128 mmHg BP Diastolic 78 mmHg Heart Rate 74 /min Respiratory Rate 20 /min Height 63 inches 5'3" Weight 175.00 lb Pain Level 7 Pain at this time. Pain Level With Medicine 6 on average with meds Pain Level Without Medicine 9 without meds BMI (Body Mass Index) 31.0 kg/m2 06/23/2019 10:52am BP Systolic 128 mmHg BP Diastolic 84 mmHg Heart Rate 80 /min Respiratory Rate 20 /min Height 63 inches 5'3" Weight 171.00 lb Pain Level 7 Pain at this time. Pain Level With Medicine 6 on average with meds Pain Level Without Medicine 9 without meds BMI (Body Mass Index) 30.3 kg/m2 Results Description No Information Available Procedures Date Code Description Status 05/24/2019 65035 Omt 1-2 Body Regions Completed 03/21/2019 87037 Omt 1-2 Body Regions Completed Medical Devices Description No Information Available Encounters Type Date Location Provider Dx Diagnosis Office Visit 06/23/2019 Main Office as Of Eitan Leone DO, G89.21 Chronic pain due 10:30a 09/17/13 MPH to trauma M54.5 Low back pain Z79.891 manager terminal (current) use of opiate analgesic Z79.891 intermediate (current) use of opiate analgesic Office Visit 05/24/2019 10:30a Main Office as Eitan Leone G89.21 Chronic pain due Of 09/17/13 DO, MPH to trauma M54.5 Low back pain M99.03 Segmental and somatic dysfunction of lumbar region Z79.891 manager terminal (current) use of opiate analgesic Z79.891 intermediate (current) use of opiate analgesic Office Visit 04/22/2019 10:30a Main Office as Eitan Leone G89.21 Chronic pain due Of 09/17/13 DO, MPH to trauma M54.5 Low back pain Z79.891 manager terminal (current) use of opiate analgesic Z79.891 manager terminal (current) use of opiate analgesic Office Visit 03/21/2019 10:30a Main Office as Eitan Leone G89.21 Chronic pain due Of 09/17/13 DO, MPH to trauma M54.5 Low back pain M99.03 Segmental and somatic dysfunction of lumbar region Z79.891 intermediate (current) use of opiate analgesic Z79.891 manager terminal (current) use of opiate analgesic Office Visit 02/21/2019 10:15a Main Office as Eitan Leone G89.21 Chronic pain due Of 2/1/14 DO, MPH to trauma M54.5 Low back pain Z79.891 intermediate (current) use of opiate analgesic Z79.891 manager terminal (current) use of opiate analgesic Assessments Date Code Description Provider 07/21/2019 G89.21 Chronic pain due to trauma Leone, Eitan, DO, MPH 07/21/2019 M54.5 Low back pain Leone, Eitan, DO, MPH 07/21/2019 M99.03 Segmental and somatic dysfunction of lumbar Leone, Eitan, DO, MPH region 07/21/2019 Z79.891 intermediate (current) use of opiate analgesic Leone, Eitan , DO, MPH 07/21/2019 Z79.891 intermediate (current) use of opiate analgesic Leone, Eitan , DO, MPH 06/23/2019 G89.21 Chronic pain due to trauma Leone, Eitan, DO, MPH 06/23/2019 M54.5 Low back pain Leone, Eitan, DO, MPH 06/23/2019 Z79.891 manager terminal (current) use of opiate analgesic Leone, Eitan , DO, MPH 06/23/2019 Z79.891 manager terminal (current) use of opiate analgesic Leone, Eitan , DO, MPH 05/24/2019 G89.21 Chronic pain due to trauma Leone, Eitan, DO, MPH 05/24/2019 M54.5 Low back pain Leone, Eitan, DO, MPH 05/24/2019 M99.03 Segmental and somatic dysfunction of lumbar Leone, Eitan, DO, MPH [facility] 05/24/2019 Z79.891 intermediate (current) use of opiate analgesic Leone, Eitan , DO, MPH 05/24/2019 Z79.891 manager terminal (current) use of opiate analgesic Leone, Eitan , DO, MPH 04/22/2019 G89.21 Chronic pain due to trauma Leone, Eitan, DO, MPH 04/22/2019 M54.5 Low back pain Leone, Eitan, DO, MPH 04/22/2019 Z79.891 intermediate (current) use of opiate analgesic Leone, Eitan , DO, MPH 04/22/2019 Z79.891 manager terminal (current) use of opiate analgesic Leone, Eitan , DO, MPH 03/21/2019 G89.21 Chronic pain due to trauma Eitan Leone DO MPH 03/21/2019 M54.5 Low back pain Eitan Leone DO MPH 03/21/2019 M99.03 Segmental and somatic dysfunction of lumbar Eitan Leone DO, MPH region 03/21/2019 Z79.891 manager terminal (current) use of opiate analgesic Eitan Leone DO MPH 03/21/2019 Z79.891 manager terminal (current) use of opiate analgesic Eitan Leone DO MPH 02/21/2019 G89.21 Chronic pain due to trauma Eitan Leone DO MPH 02/21/2019 M54.5 Low back pain Eitan Leone DO MPH 02/21/2019 Z79.891 manager terminal (current) use of opiate analgesic Eitan Leone DO MPH 02/21/2019 Z79.891 manager terminal (current) use of opiate analgesic Eitan Leone DO MPH Plan of Treatment Future Appointment(s):08/22/2019 10:15 am - Eitan Leone DO MPH at Main Office as Of 09/17/1411 - Eitan Leone DO MPHG89.21 Chronic pain [...] Continue current medical pain management and OMT. [id number]. OMT performed after evaluation. HVLA.Z79.891 manager terminal (current) use of opiate analgesicNew Labs:Urine Drug Screen, Ordered: 07/21/19Comments:Urine drug screen sample taken. Rapid Point of [...] ongoing re- assessment of opioid therapy. Per [facility] Workers' Compensation Board, [place] Non-Acute Pain Medical Treatment Guidelines, section F.3.d.i. [...] while maintaining satisfactory side effect profile andminimizing skilled nursing end-organ damage. Importance of regular nutrition throughout the day discussed.Activity as toleratedContinue with PCP Functional Status Description No Information Available Mental Status Description No Information Available Referrals Description No Information Available
[2019-08-13 18:42] VITALS: BP 127/93
== END 2019-08-13 18:30 | disposition home or self-care (01) ==
LOC: ED 16:19
DX: S16.1XXA Strain of muscle, fascia and tendon at neck level, initial encounter (principal); J18.9 Pneumonia, unspecified organism; X50.0XXA Overexertion from strenuous movement or load, initial encounter; Y92.9 Unspecified place or not applicable; Z88.0 Allergy status to penicillin; J44.9 Chronic obstructive pulmonary disease, unspecified; Z87.891 Personal history of nicotine dependence; Z79.52 Long term (current) use of systemic steroids
CPT/HCPCS: 71046; 96372; 99282; J1885

== ENCOUNTER 2022-04-28 18:25 | Inpatient (IN) ==
[2022-04-29] MEDS ORDERED: Albuterol/Ipratropium NEB.SOL (2.5/0.5 MG) 3 ML NEB.SOLN INH ONE (00:52)
[2022-04-29] MEDS ORDERED: cefTRIAXone 1 gm/50 mL D5W 1 GM/50 ML BAG IV ONE (01:40)
[2022-04-29 01:47] LABS: ABS Basophils 0.1 10^3/ul (0-0.2); ABS Eosinophils 0.2 10^3/ul (0-0.6); ABS Monocytes 0.6 10^3/ul (0-0.8); ABS Neutrophils 13.5 10^3/ul (1.5-7.7); Eosinophil % 1.2 %; Hematocrit 36 % (42-52); Hemoglobin 12.6 g/dL (14.0-18.0); Mean Corpuscular HGB Conc 35 g/dL (31-36); Mean Corpuscular Hemoglobin 29 pg (27-31); Mean Corpuscular Volume 83 fL (80-94); Mean Platelet Volume 7.4 fL (7.4-10.4); Platelet Count 265 10^3/uL (150-450); Red Blood Count 4.29 10^6 /uL (4.18-5.48); Red Cell Distribution Width 14 % (10-15); White Blood Count 16.5 10^3/uL (3.5-10.8)
[2022-04-29 02:30] LABS: Albumin 3.6 g/dL (3.2-5.2); Albumin/Globulin Ratio 1.2 (1-3); C Reactive Protein 246.41 mg/L (<8.01); Calcium 8.7 mg/dL (8.6-10.3); Globulin 2.9 g/dL (2-4); Potassium 3.9 mmol/L (3.5-5.0); Total Bilirubin 1.1 mg/dL (0.2-1.0); Total Protein 6.5 g/dL (6.4-8.9); eGFR CKD-EPI 95.8 (>60)
[2022-04-29] MEDS ORDERED: Albuterol HFA INHALER 8 gm MDI INH PRN (03:26)
[2022-04-29] MEDS: Enoxaparin 40 MG/0.4 ML SYR SUBCUT SCH (06:25)
[2022-04-29] MEDS ORDERED: guaiFENesin 100 mg/5 ml LIQ unit dose cup PO PRN (08:02)
[2022-04-29] MEDS: Aspirin EC 81 mg TAB.EC (enteric coated) PO SCH (09:14)
[2022-04-29] MEDS: guaiFENesin 100 mg/5 ml LIQ unit dose cup PO SCH ×3 (11:17→21:30)
[2022-04-29] MEDS ORDERED: Magnesium Hydroxide LIQ 30 ML UDC PO ONE (17:18)
[2022-04-29] MEDS ORDERED: Senna TAB 8.6 mg TAB PO PRN (17:19)
[2022-04-29] MEDS: Albuterol HFA INHALER 8 gm MDI INH SCH ×2 (18:35→20:08)
[2022-04-29 19:04] LABS: Urine Appearance Clear; Urine Bilirubin Negative (Negative); Urine Color Straw; Urine Glucose Negative (Negative)
[2022-04-29 19:05] LABS: Urine Blood 1+ (Small) (Negative); Urine Ketones Negative (Negative); Urine Nitrite Negative (Negative); Urine Protein Negative (Negative); Urine Specific Gravity 1.015 (1.005-1.030); Urine Urobilinogen 1.0 (Negative) (Negative); Urine pH 6.5 (5.0-9.0)
[2022-04-29 19:08] LABS: Urine Bacteria Absent (Absent); Urine Red Blood Cell Trace(0-2/hpf) (Absent); Urine White Blood Cell Absent (Absent)
[2022-04-30] MEDS: Albuterol HFA INHALER 8 gm MDI INH SCH ×4 (01:19→19:10)
[2022-04-30] MEDS ORDERED: cefTRIAXone 1 gm/50 mL D5W 1 GM/50 ML BAG IV SCH (02:00)
[2022-04-30] MEDS: Enoxaparin 40 MG/0.4 ML SYR SUBCUT SCH (05:08)
[2022-04-30] MEDS: guaiFENesin 100 mg/5 ml LIQ unit dose cup PO SCH ×4 (05:08→21:31)
[2022-04-30 05:33] LABS: ABS Lymphocytes 1.5 10^3/ul (1.0-4.8); ABS Monocytes 0.5 10^3/ul (0-0.8); ABS Neutrophils 10.4 10^3/ul (1.5-7.7); Eosinophil % 0.3 %; Hematocrit 34 % (42-52); Hemoglobin 11.4 g/dL (14.0-18.0); Lymphocyte % 11.9 %; Mean Corpuscular HGB Conc 34 g/dL (31-36); Mean Corpuscular Hemoglobin 28 pg (27-31); Mean Corpuscular Volume 83 fL (80-94); Mean Platelet Volume 7.4 fL (7.4-10.4); Platelet Count 285 10^3/uL (150-450); Red Blood Count 4.06 10^6 /uL (4.18-5.48); Red Cell Distribution Width 15 % (10-15); White Blood Count 12.4 10^3/uL (3.5-10.8)
[2022-04-30 06:12] LABS: C Reactive Protein 141.24 mg/L (<8.01); Calcium 8.7 mg/dL (8.6-10.3); Potassium 4.2 mmol/L (3.5-5.0); eGFR CKD-EPI 97.6 (>60)
[2022-04-30] MEDS: Aspirin EC 81 mg TAB.EC (enteric coated) PO SCH (07:47)
[2022-04-30] MEDS ORDERED: Magnesium Hydroxide LIQ 30 ML UDC PO PRN (14:57)
[2022-05-01] MEDS: Albuterol HFA INHALER 8 gm MDI INH SCH ×2 (01:08→07:18)
[2022-05-01] MEDS ORDERED: Calcium Carb (TUMS) 500 mg CHEW TAB ONE (03:38)
[2022-05-01] MEDS: Enoxaparin 40 MG/0.4 ML SYR SUBCUT SCH (05:50)
[2022-05-01] MEDS: guaiFENesin 100 mg/5 ml LIQ unit dose cup PO SCH ×2 (05:50→09:03)
[2022-05-01] MEDS ORDERED: Calcium Carb (TUMS) 500 mg CHEW TAB PO PRN (06:02)
[2022-05-01 06:19] LABS: ABS Basophils 0.1 10^3/ul (0-0.2); ABS Lymphocytes 2.7 10^3/ul (1.0-4.8); ABS Monocytes 0.5 10^3/ul (0-0.8); ABS Neutrophils 7.9 10^3/ul (1.5-7.7); Eosinophil % 0.4 %; Hematocrit 35 % (42-52); Hemoglobin 11.6 g/dL (14.0-18.0); Lymphocyte % 24.4 %; Mean Corpuscular HGB Conc 34 g/dL (31-36); Mean Corpuscular Hemoglobin 28 pg (27-31); Mean Corpuscular Volume 83 fL (80-94); Mean Platelet Volume 7.6 fL (7.4-10.4); Platelet Count 328 10^3/uL (150-450); Red Blood Count 4.18 10^6 /uL (4.18-5.48); Red Cell Distribution Width 15 % (10-15); White Blood Count 11.3 10^3/uL (3.5-10.8)
[2022-05-01 06:35] LABS: Calcium 8.9 mg/dL (8.6-10.3); Potassium 3.9 mmol/L (3.5-5.0); eGFR CKD-EPI 96.2 (>60)
[2022-05-01] MEDS ORDERED: Albuterol HFA INHALER 8 gm MDI INH PRN (07:59)
[2022-05-01] MEDS ORDERED: FLUTICAS/UMECLI/VILANT 100-62.5-25 MDI (NF) INH SCH (09:00)
[2022-05-01] MEDS: Aspirin EC 81 mg TAB.EC (enteric coated) PO SCH (09:02)
[2022-05-01] MEDS ORDERED: Magnesium Hydroxide LIQ 30 ML UDC PO ONE (09:42)
[2022-05-01 14:25] VITALS: BP 130/78
== END 2022-05-01 15:15 | disposition home or self-care (01) | DRG 871 ==
LOC: ED 18:25 → EDHOLD 04-29 04:59 → SUATTDRO 04-29 04:59 → EDHOLD 04-29 11:28 → MEDTELE 04-29 12:09
PROVIDERS: ADMIT Student in an Organized Health Care Education/Training Program; ATTEND Internal Medicine